=== PATIENT | female | born 1965 | race Asian ===

== ENCOUNTER 2019-06-17 18:04 | Inpatient (IN) | payer OTHER ==
[~2019-06-17] VITALS: Ht 152.4 cm; Wt 46.7 kg
[2019-06-17 18:40] VITALS: BP 126/74
[2019-06-17] MEDS ORDERED: Isovue-300 100ml vial INJ PRN ×2 (18:45→19:45)
[2019-06-17] MEDS ORDERED: AMLODIPINE BESYL5 MG ORAL (18:55)
[2019-06-17] MEDS ORDERED: MULTIVITAMINS1 EAC8 ORAL (18:55)
[2019-06-17] MEDS ORDERED: LO LOESTRIN FE1 EAC1 PO (18:56)
[2019-06-17 19:00] LABS: APPEARANCE,URINE SLIGHTLY CLOUDY; BILIRUBIN, URINE NEGATIVE (NEGATIVE); GLUCOSE, URINE (UA) NEGATIVE (NEGATIVE); KETONES,URINE NEGATIVE (NEGATIVE); LEUKOCYTE ESTERASE ,URINE 3+ (NEGATIVE); NITRITE,URINE NEGATIVE (NEGATIVE); PH,URINE 8 (4.5-8.0); PROTEIN,URINE 3+ (NEGATIVE); UROBILINOGEN,URINE NORMAL MG/DL (0.0-1.0)
[2019-06-17 19:04] LABS: COLOR,URINE RED
--- NOTE | 2019-06-17 19:12 | Infectious Diseases Prog Note ---
Assessment/Plan Assessment/Plan Full consult dictated; A) 1) fever, s/p myomectomy today 2) hx fibroids and bleeding 3) hx HTN 4) allergies - pcn, sulfa - severe 5) sh-neg, fh-nc, meds noted 6) d/w RN and patient P) 1) empiric clindamycin and gentamicin 2) check CT scan and cultures 3) monitor temperatures and labs 4) d/w Dr. Diop and Dr. Pope 5) d/w Dr. Bolando - DENIA SAMANO 6) thank you Subjective Allergies: Coded Allergies: PENICILLINS (Verified Allergy, Unknown, 06/17/19) Uncoded Allergies: SULFA (Allergy, Unknown, 06/17/19) Objective Vital Signs Last 24 Hour Vital Signs Date Time Temp Pulse Resp B/P (MAP) Pulse Ox O2 Delivery O2 Flow Rate FiO2 06/17/19 18:22 98.2 135 18 100/68 (79) 98 Room Air Height (Feet): 5 Weight (Pounds): 103 Laboratory Tests Test 06/17/19 18:15 06/17/19 18:50 Urine Color Red Urine Appearance Slightly cloudy Urine pH 8 (4.5-8.0) Urine Specific [place] 1.010 (1.005-1.035) Urine Protein 3+ (NEGATIVE) H Urine Glucose (UA) Negative (NEGATIVE) Urine Ketones Negative (NEGATIVE) Urine Blood 5+ (NEGATIVE) H Urine Nitrite Negative (NEGATIVE) Urine Bilirubin Negative (NEGATIVE) Urine Urobilinogen Normal MG/DL (0.0-1.0) Urine Leukocyte Esterase 3+ (NEGATIVE) H Urine RBC Pending Urine WBC Pending Urine Squamous Epithelial Cells Pending Urine Bacteria Pending White Blood Count Pending Red Blood Count Pending Hemoglobin Pending Hematocrit Pending Mean Corpuscular Volume Pending Mean Corpuscular Hemoglobin Pending Mean Corpuscular Hemoglobin Concent Pending Red Cell Distribution Width Pending Platelet Count Pending Mean Platelet Volume Pending Neutrophils (%) (Auto) Pending Lymphocytes (%) (Auto) Pending Monocytes (%) (Auto) Pending Eosinophils (%) (Auto) Pending Basophils (%) (Auto) Pending Prothrombin Time Pending Prothromb Time International Ratio Pending Activated Partial Thromboplast Time Pending Sodium Level Pending Potassium Level Pending Chloride Level Pending Carbon Dioxide Level Pending Blood Urea Nitrogen Pending Creatinine Pending Estimat Glomerular Filtration Rate Pending Glucose Level Pending Lactic Acid Level Pending Calcium Level Pending Total Bilirubin Pending Aspartate Amino Transf (AST/SGOT) Pending Alanine Aminotransferase (ALT/SGPT) Pending Alkaline Phosphatase Pending Troponin I Pending Total Protein Pending Albumin Pending Globulin Pending Current Medications Medications (Trade) Dose Ordered Sig/Zully Route PRN Reason Start Time Stop Time Status Last Admin Dose Admin Iopamidol (Isovue-300 100ml) 100 ml NOW PRN INJ Radiology Procedure 06/17/19 18:45 Wilfrido Hollis MD Jun 17, 2019 19:12
[2019-06-17] MEDS ORDERED: Gentamicin Rx monitoring MISC PRN (19:15)
[2019-06-17 19:36] LABS: ALANINE AMINOTRANSFERASE 21 U/L (12-78); ALBUMIN 2.6 G/DL (3.4-5.0); ALBUMIN/GLOBULIN RATIO 0.6 (1.0-2.7); ALKALINE PHOSPHATASE 78 U/L (46-116); ANION GAP 12 mmol/L (5-15); ASPARTATE AMINO TRANSFERASE 35 U/L (15-37); BILIRUBIN,TOTAL 0.4 MG/DL (0.2-1.0); BLOOD UREA NITROGEN 6 mg/dL (7-18); CALCIUM 8.2 MG/DL (8.5-10.1); CARBON DIOXIDE 21 MMOL/L (21-32); CHLORIDE 103 MMOL/L (98-107); CREATININE 1.1 MG/DL (0.55-1.30); POTASSIUM 2.8 MMOL/L (3.5-5.1); SODIUM 136 MMOL/L (136-145)
--- NOTE | 2019-06-17 19:37 | Emergency Room Report ---
History of Present Illness General Chief Complaint: Fever Source: Patient Present Illness HPI 53-year-old female presenting with fever. She had a necrotic fibroid removed by hysteroscopy this morning with Dr. Mcconnell. While in the recovery unit she developed fever and fast heart rate. She was brought straight into the ER here. She says that she does feel some palpitations. No chest pain. Has generalized abdominal pain. No nausea no vomiting Allergies: Coded Allergies: PENICILLINS (Verified Allergy, Unknown, 06/17/19) Uncoded Allergies: SULFA (Allergy, Unknown, 06/17/19) Patient History Past Medical History: see triage record Past Surgical History: none Pertinent Family History: none Last Menstrual Period: 06/04/2019 Reviewed Nursing Documentation: PMH: Agreed; PSxH: Agreed Nursing Documentation-PMH Past Medical History: No History, Except For Hx Hypertension: Yes - Uterine Fibroid, right lumpectomy, breast augmentation Review of Systems All Other Systems: negative except mentioned in HPI Physical Exam Vital Signs Date Time Temp Pulse Resp B/P (MAP) Pulse Ox O2 Delivery O2 Flow Rate FiO2 06/17/19 18:22 98.2 135 18 100/68 (79) 98 Room Air Sp02 EP Interpretation: reviewed, normal General Appearance: alert, GCS 15, non-toxic, mild distress Head: normocephalic, atraumatic Eyes: bilateral eye normal inspection, bilateral eye PERRL, bilateral eye EOMI ENT: normal ENT inspection, normal pharynx, normal voice, moist mucus membranes Neck: normal inspection, full range of motion, supple Respiratory: normal inspection, lungs clear, normal breath sounds, no respiratory distress, no retraction, no wheezing, speaking full sentences, chest symmetrical Cardiovascular #1: tachycardia Cardiovascular #2: 2+ radial (R), 2+ radial (L) Gastrointestinal: soft, non-distended, no guarding, other - Generalized abdominal tenderness nothing focal Musculoskeletal: normal inspection, back normal, normal range of motion, non- tender Neurologic: normal inspection, alert, oriented x3, responsive, motor strength/ tone normal, sensory intact, normal gait, speech normal Psychiatric: normal inspection, judgement/insight normal, memory normal Procedures Critical Care Time Critical Care Time 40 minutes of CC time Critical care time necessary in order to assess and manage the high probability of life threatening deterioration to cardiovasc system, required frequent reassessment. Excludes all billable procedures. Medical Decision Making Diagnostic Impression: Primary Impression: Sepsis Additional Impressions: Hypokalemia Status post hysteroscopic myomectomy ER Course 53-year-old female with abdominal pain and fever DDX: Intra-abdominal complication is post necrotic fibroid removal, abscess, infection, UTI, pyelonephritis, appendicitis, diverticulitis Plan: Obtain labs, ua, EKG, CXR T. Abdo pelvis ER course: Patient has been monitored during ED stay ivf was given Infectious diseases doctor came to see her - rec'ed gentamicin and clindamycin informed Dr Mcconnell Disposition: Patient is to be admitted to [facility]/W hospitalist DR Snow Please note that this Emergency Department Report was dictated using [employer] dispatch manager technology software, occasionally this can lead to erroneous entry secondary to interpretation by the dictation equipment. EKG Diagnostic Results EP Interpretation: Yes Rate: 120 Rhythm: NSR ST Segments: No acute changes ASA given to patient: No Rhythm Strip EP Interpretation: Yes Rate: 120 Rhythm: NSR, no PVCs, no ectopy Chest X-ray CXR: Ordered: Yes 1 view Indication: PAIN EP interpretation: Yes Interpretation: POSS B/L INFILTRATE Impression: hazy opacities b/l --- ?pna Electronically signed by Kathi Larson MD Laboratory Tests Test 06/17/19 18:15 06/17/19 18:50 06/17/19 19:25 Urine Color Red Urine Appearance Slightly cloudy Urine pH 8 (4.5-8.0) Urine Specific [place] 1.010 (1.005-1.035) Urine Protein 3+ (NEGATIVE) H Urine Glucose (UA) Negative (NEGATIVE) Urine Ketones Negative (NEGATIVE) Urine Blood 5+ (NEGATIVE) H Urine Nitrite Negative (NEGATIVE) Urine Bilirubin Negative (NEGATIVE) Urine Urobilinogen Normal MG/DL (0.0-1.0) Urine Leukocyte Esterase 3+ (NEGATIVE) H Urine RBC Tntc /HPF (0 - 2) H Urine WBC 10-15 /HPF (0 - 2) H Urine Squamous Epithelial Cells Occasional /LPF Urine Bacteria Few /HPF (NONE) Sodium Level 136 MMOL/L (136-145) Potassium Level 2.8 MMOL/L (3.5-5.1) L Chloride Level 103 MMOL/L (98-107) Carbon Dioxide Level 21 MMOL/L (21-32) Anion Gap 12 mmol/L (5-15) Blood Urea Nitrogen 6 mg/dL (7-18) L Creatinine 1.1 MG/DL (0.55-1.30) Estimate Glomerular Filtration Rate 52.4 mL/min (>60) Glucose Level 138 MG/DL (74-106) H Lactic Acid Level 4.10 mmol/L (0.4-2.0) H Calcium Level 8.2 MG/DL (8.5-10.1) L Total Bilirubin 0.4 MG/DL (0.2-1.0) Aspartate Amino Transferase (AST) 35 U/L (15-37) Alanine Aminotransferase (ALT) 21 U/L (12-78) Alkaline Phosphatase 78 U/L (46-116) Troponin I 0.004 ng/mL (0.000-0.056) Total Protein 6.8 G/DL (6.4-8.2) Albumin 2.6 G/DL (3.4-5.0) L Globulin 4.2 g/dL Albumin/Globulin Ratio 0.6 (1.0-2.7) L White Blood Count 34.9 K/UL (4.8-10.8) *H Red Blood Count 2.99 M/UL (4.20-5.40) L Hemoglobin 9.8 G/DL (12.0-16.0) L Hematocrit 26.9 % (37.0-47.0) L Mean Corpuscular Volume 90 FL (80-99) Mean Corpuscular Hemoglobin 32.7 PG (27.0-31.0) H Mean Corpuscular Hemoglobin Concent 36.2 G/DL (32.0-36.0) H Red Cell Distribution Width 10.7 % (11.6-14.8) L Platelet Count 275 K/UL (150-450) Mean Platelet Volume 4.7 FL (6.5-10.1) L Neutrophils (%) (Auto) % (45.0-75.0) Lymphocytes (%) (Auto) % (20.0-45.0) Monocytes (%) (Auto) % (1.0-10.0) Eosinophils (%) (Auto) % (0.0-3.0) Basophils (%) (Auto) % (0.0-2.0) Neutrophils % (Manual) Pending Lymphocytes % (Manual) Pending Platelet Estimate Pending Platelet Morphology Pending Prothrombin Time 12.3 SEC (9.30-11.50) H Prothrombin Time INR 1.2 (0.9-1.1) H PTT 29 SEC (23-33) CT/MRI/US Diagnostic Results CT/MRI/US Diagnostic Results : Imaging Test Ordered: CT CHEST ABD PELVIS WITH IV CONTRAST Impression Signs of recent fibroid embolization, trace free fluid in pelvis, no abscess, liver cysts, no SBO. Mild basilar atelectasis Last Vital Signs Date Time Temp Pulse Resp B/P (MAP) Pulse Ox O2 Delivery O2 Flow Rate FiO2 06/17/19 18:40 128 18 Room Air 06/17/19 18:40 98.2 126/74 98 Disposition: ADMITTED INPATIENT Condition: Critical Referrals: Kyle Mcconnell MD (PCP) Kathi Larson M.D. Jun 17, 2019 19:37
[2019-06-17 20:04] LABS: HEMATOCRIT 26.9 % (37.0-47.0); HEMOGLOBIN 9.8 G/DL (12.0-16.0); INR 1.2 (0.9-1.1); MEAN CORPUSCULAR VOLUME 90 FL (80-99); PLATELET COUNT 275 K/UL (150-450); RED BLOOD COUNT 2.99 M/UL (4.20-5.40); RED CELL DISTRIBUTION WIDTH 10.7 % (11.6-14.8)
[2019-06-17 20:05] LABS: WHITE BLOOD COUNT 34.9 K/UL (4.8-10.8)
[2019-06-17] MEDS ORDERED: Clindamycin 900mg 50 ML IVPB ONE (20:15)
[2019-06-17] MEDS ORDERED: GENTAMICIN IVPB ONE (21:00)
[2019-06-17] MEDS ORDERED: NS IVPB ONE (21:00)
[2019-06-17 21:15] VITALS: BP 105/76
[2019-06-17 22:15] VITALS: BP 101/65
[2019-06-17] MEDS ORDERED: POTASSIUM CHLORIDE IV ONE (23:25)
[2019-06-17] MEDS ORDERED: [UNRECOGNIZED DRUG - OTHER] IV ONE (23:25)
[2019-06-18] VITALS: BP 97/61
--- NOTE | 2019-06-18 02:30 | Consultation ---
DATE OF CONSULTATION: 06/17/2019 INFECTIOUS DISEASES CONSULTATION ATTENDING PHYSICIAN: Kenton Diop M.D. REFERRING PHYSICIANS: Kenton Diop M.D., and Kyle Pope M.D. PRIMARY CARE PHYSICIAN: Kyle Pope M.D. HISTORY OF PRESENT ILLNESS: This is a very pleasant 53-year-old female, who presents to [facility] with fever. Outside, she had a temperature of over 103 degrees. She is tachycardic in the ER with a temperature of 98.2 degrees. The patient earlier today had a myomectomy because she has had a history of fibroids and vaginal bleed. Infectious Disease consultation was requested because of the fevers postoperatively. The patient has a severe penicillin allergy and I think I believe sulfa allergy, she states she gets swelling and could be anaphylactic reaction. The patient is to undergo CT scan here in the emergency room and will be cultured in addition to labs. Of note, urinalysis had 10 to 15 white blood cells and 3+ leukocyte esterase, but also had too many to count RBCs, unclear if she has urinary tract infection also. However, the patient did have a procedure today. The patient was placed on clindamycin and gentamicin because of severe penicillin allergy pending workup. Case was discussed with Dr. Diop and Dr. Pope and also Dr. Larson in the emergency room and also the RN and the patient. Please see HPI. REVIEW OF SYSTEMS: GENERAL: The patient as discussed did have fevers a little over 103 degrees in outpatient setting. She did not mention any chills. She has some lower abdominal discomfort. HEAD AND NECK: No headache or neck stiffness. CARDIAC: No chest pain. GASTROINTESTINAL: No nausea or vomiting. She did have abdominal discomfort in lower abdomen. PULMONARY: No congestion or shortness of breath. SKIN: No rash. EXTREMITIES: No extremity pain. GENITOURINARY: No mention of dysuria. NEUROLOGIC: No seizures. Denies any CVA tenderness. PAST MEDICAL HISTORY: She has the past medical history of following: She has a past medical history of hypertension. In addition, she has a history of fibroids with bleed and history of myomectomy done today. No history of diabetes, heart disease, or cancer. ALLERGIES: Include penicillin and sulfa where she gets a severe reaction, almost anaphylactic with swelling. As described, she stated she has swelling and it should be considered possible anaphylactic reaction. Again, allergies to penicillin and sulfa. SOCIAL HISTORY: Negative for smoking, alcohol, or drug abuse. FAMILY HISTORY: Positive for coronary artery disease in her father at age 70. MEDICATIONS: I have placed the patient on clindamycin and gentamicin. She gets outpatient amlodipine. PHYSICAL EXAMINATION: VITAL SIGNS: Temperature 98.2 degrees, pulse rate 135, respiratory rate 18, blood pressure 100/68, and saturation 98% on room air. Her T-max in the outpatient setting was 103 degrees plus per the patient. GENERAL: Alert and responsive, in no acute distress. Oriented x3. HEAD AND NECK: Oral exam, no thrush. Eye exam, no icterus. Neck is supple. No JVD. Normocephalic. HEART: Regular. No obvious gallop or murmur. Tachycardic. ABDOMEN: Soft. Positive bowel sounds. Some discomfort in lower abdomen. No rebound. LUNGS: Clear bilaterally. No rhonchi or rales. SKIN: No rash. MUSCULOSKELETAL: No effusion. Legs are without cellulitis. PERIPHERAL VASCULAR: No cyanosis or gangrene. : No Strickland. No CVA tenderness. LINES: Line sites without phlebitis. NEUROLOGIC: Intact. Nonfocal. Alert and oriented x3. LABORATORY AND IMAGING DATA: UA had 3+ leukocyte esterase, too many to count RBCs, 10 to 15 white blood cells, and few bacteria. Creatinine and CBC are pending. I discussed with Dr. Pope. Outpatient white cell count was normal. Cultures have been ordered. Pending CT scan abdomen and pelvis. Chest x-ray is ordered and pending. Urine and blood cultures have been ordered. Her chemistry labs pending. UA, too many to count RBCs, 10 to 15 white blood cells, and 3+ leukocyte esterase. ASSESSMENT AND PLAN: 1. The patient is status post myomectomy for what sounds like uterine fibroids and bleeding. The patient has postoperative fevers. Etiology unclear at this time. Of note, having fever post myomectomy is not uncommon without any necessary infection. At this time, because of her severe penicillin allergy, I am going to place the patient on clindamycin and gentamicin for polymicrobial coverage including anaerobic coverage and also coverage for UTI. The patient does have 10 to 15 white blood cells on urinalysis. However, she did have procedure today and thus unclear of the significance of this. Continue clindamycin and gentamicin for fever and possible UTI. Check CT scan of the abdomen and pelvis, which has been ordered and will be done today in the ER. Follow up on cultures, labs, and chest x-ray. Continue with clindamycin and gentamicin pending workup. Case was discussed with Dr. Diop, Dr. Pope, and Dr. Larson in the emergency room. Await laboratory data also. 2. Hypertension. Continue amlodipine. 3. IV fluids. 4. Pain management per Dr. Pope and Dr. Diop as needed. 5. History of fibroids and what sounds like uterine fibroids and vaginal bleed. 6. History of myomectomy that was done today. I think I believe she has had previous BRICK [facility]TER procedures also in the past. 7. Allergies to penicillin and sulfa. 8. Family history is noncontributory. 9. MAR was noted. 10. Case was discussed with RN. 11. Social history is negative. 12. The patient has severe allergy to penicillin and sulfa. 13. Continue treatment per Dr. Diop and Dr. Pope. Thank you. I will follow. Wilfrido Hollis M.D. DR: Daniel JOB#: [id number] CC:
[2019-06-18 04:00] VITALS: BP 98/64
[2019-06-18 05:18] LABS: HEMATOCRIT 27.1 % (37.0-47.0); HEMOGLOBIN 8.9 G/DL (12.0-16.0); MEAN CORPUSCULAR VOLUME 97 FL (80-99); PLATELET COUNT 310 K/UL (150-450); RED BLOOD COUNT 2.79 M/UL (4.20-5.40); RED CELL DISTRIBUTION WIDTH 11.5 % (11.6-14.8)
[2019-06-18] MEDS: Clindamycin 900mg 50 ML IV SCH ×3 (05:32→21:28)
[2019-06-18 05:46] LABS: ALANINE AMINOTRANSFERASE 27 U/L (12-78); ALBUMIN 2.6 G/DL (3.4-5.0); ALBUMIN/GLOBULIN RATIO 0.6 (1.0-2.7); ALKALINE PHOSPHATASE 78 U/L (46-116); ANION GAP 12 mmol/L (5-15); ASPARTATE AMINO TRANSFERASE 57 U/L (15-37); BILIRUBIN,TOTAL 0.6 MG/DL (0.2-1.0); BLOOD UREA NITROGEN 6 mg/dL (7-18); CALCIUM 8.2 MG/DL (8.5-10.1); CARBON DIOXIDE 22 MMOL/L (21-32); CHLORIDE 101 MMOL/L (98-107); CREATININE 0.8 MG/DL (0.55-1.30); POTASSIUM 4.2 MMOL/L (3.5-5.1); SODIUM 135 MMOL/L (136-145)
[2019-06-18 08:00] VITALS: BP 95/66
[2019-06-18 08:58] LABS: HEMATOCRIT 25.9 % (37.0-47.0); HEMOGLOBIN 8.6 G/DL (12.0-16.0); MEAN CORPUSCULAR VOLUME 98 FL (80-99); PLATELET COUNT 271 K/UL (150-450); RED BLOOD COUNT 2.64 M/UL (4.20-5.40)
[2019-06-18 09:02] LABS: WHITE BLOOD COUNT 47.3 K/UL (4.8-10.8)
[2019-06-18] MEDS ORDERED: D5W IVPB SCH (10:00)
[2019-06-18] MEDS ORDERED: AZTREONAM IVPB SCH (10:00)
--- NOTE | 2019-06-18 10:08 | General Surgery Progress Note ---
General Surgery-Progress Note Subjective Day of Surgery: june 17 Reason for Consult fever Procedure Performed hysteroscopy, myomectomy Symptoms: improved, tolerating diet, voiding well, passing flatus, BM Objective Last 24 Hour Vital Signs Date Time Temp Pulse Resp B/P (MAP) Pulse Ox O2 Delivery O2 Flow Rate FiO2 06/18/19 08:00 97.2 94 20 95/66 (76) 98 06/18/19 04:00 Room Air 06/18/19 04:00 97.2 91 20 98/64 (75) 95 06/18/19 03:37 91 06/18/19 01:14 98 06/18/19 00:00 98.4 102 18 97/61 (73) 94 06/18/19 00:00 Room Air 06/17/19 22:55 Room Air 06/17/19 22:15 99.1 111 18 101/65 (77) 98 06/17/19 22:00 98.2 105 18 105/76 98 Room Air 06/17/19 21:15 98.2 113 18 105/76 98 Room Air 06/17/19 18:40 128 18 Room Air 06/17/19 18:40 98.2 128 18 126/74 98 Room Air 06/17/19 18:22 98.2 135 18 100/68 (79) 98 Room Air I&O Intake and Output 06/17/19 06/18/19 19:00 07:00 Intake Total 0 ml 1000 ml Balance 0 ml 1000 ml Intake Oral 0 ml 300 ml IV Total 700 ml # Voids 1 5 Dressing: dry Wound: clean Drains: none Cardiovascular: RSR Respiratory: clear Abdomen: soft, flat, scaphoid, non-tender, present bowel sounds Extremities: no edema, no tenderness, no cyanosis Laboratory Tests Test 06/17/19 18:15 06/17/19 18:50 06/17/19 19:25 06/17/19 20:45 Urine Color Red Urine Appearance Slightly cloudy Urine pH 8 (4.5-8.0) Urine Specific [place] 1.010 (1.005-1.035) Urine Protein 3+ (NEGATIVE) H Urine Glucose (UA) Negative (NEGATIVE) Urine Ketones Negative (NEGATIVE) Urine Blood 5+ (NEGATIVE) H Urine Nitrite Negative (NEGATIVE) Urine Bilirubin Negative (NEGATIVE) Urine Urobilinogen Normal MG/DL (0.0-1.0) Urine Leukocyte Esterase 3+ (NEGATIVE) H Urine RBC Tntc /HPF (0 - 2) H Urine WBC 10-15 /HPF (0 - 2) H Urine Squamous Epithelial Cells Occasional /LPF Urine Bacteria Few /HPF (NONE) Sodium Level 136 MMOL/L (136-145) Potassium Level 2.8 MMOL/L (3.5-5.1) L Chloride Level 103 MMOL/L (98-107) Carbon Dioxide Level 21 MMOL/L (21-32) Anion Gap 12 mmol/L (5-15) Blood Urea Nitrogen 6 mg/dL (7-18) L Creatinine 1.1 MG/DL (0.55-1.30) Estimat Glomerular Filtration Rate 52.4 mL/min (>60) Glucose Level 138 MG/DL (74-106) H Lactic Acid Level 4.10 mmol/L (0.4-2.0) H 2.60 mmol/L (0.66-2.22) H Calcium Level 8.2 MG/DL (8.5-10.1) L Total Bilirubin 0.4 MG/DL (0.2-1.0) Aspartate Amino Transf (AST/SGOT) 35 U/L (15-37) Alanine Aminotransferase (ALT/SGPT) 21 U/L (12-78) Alkaline Phosphatase 78 U/L (46-116) Troponin I 0.004 ng/mL (0.000-0.056) Total Protein 6.8 G/DL (6.4-8.2) Albumin 2.6 G/DL (3.4-5.0) L Globulin 4.2 g/dL Albumin/Globulin Ratio 0.6 (1.0-2.7) L White Blood Count 34.9 K/UL (4.8-10.8) *H Red Blood Count 2.99 M/UL (4.20-5.40) L Hemoglobin 9.8 G/DL (12.0-16.0) L Hematocrit 26.9 % (37.0-47.0) L Mean Corpuscular Volume 90 FL (80-99) Mean Corpuscular Hemoglobin 32.7 PG (27.0-31.0) H Mean Corpuscular Hemoglobin Concent 36.2 G/DL (32.0-36.0) H Red Cell Distribution Width 10.7 % (11.6-14.8) L Platelet Count 275 K/UL (150-450) Mean Platelet Volume 4.7 FL (6.5-10.1) L Neutrophils (%) (Auto) % (45.0-75.0) Lymphocytes (%) (Auto) % (20.0-45.0) Monocytes (%) (Auto) % (1.0-10.0) Eosinophils (%) (Auto) % (0.0-3.0) Basophils (%) (Auto) % (0.0-2.0) Differential Total Cells Counted 100 Neutrophils % (Manual) 68 % (45-75) Lymphocytes % (Manual) 1 % (20-45) L Monocytes % (Manual) 3 % (1-10) Eosinophils % (Manual) 1 % (0-3) Basophils % (Manual) 0 % (0-2) Metamyelocytes % 2 % (0-0) H Band Neutrophils 25 % (0-8) H Platelet Estimate Adequate Platelet Morphology Normal Red Blood Cell Morphology Normal Prothrombin Time 12.3 SEC (9.30-11.50) H Prothromb Time International Ratio 1.2 (0.9-1.1) H Activated Partial Thromboplast Time 29 SEC (23-33) Test 06/18/19 03:50 06/18/19 08:45 White Blood Count 52.0 K/UL (4.8-10.8) *H 47.3 K/UL (4.8-10.8) *H Red Blood Count 2.79 M/UL (4.20-5.40) L 2.64 M/UL (4.20-5.40) L Hemoglobin 8.9 G/DL (12.0-16.0) L 8.6 G/DL (12.0-16.0) L Hematocrit 27.1 % (37.0-47.0) L 25.9 % (37.0-47.0) L Mean Corpuscular Volume 97 FL (80-99) 98 FL (80-99) Mean Corpuscular Hemoglobin 31.9 PG (27.0-31.0) H 32.6 PG (27.0-31.0) H Mean Corpuscular Hemoglobin Concent 32.9 G/DL (32.0-36.0) 33.2 G/DL (32.0-36.0) Red Cell Distribution Width 11.5 % (11.6-14.8) L 12.0 % (11.6-14.8) Platelet Count 310 K/UL (150-450) 271 K/UL (150-450) Mean Platelet Volume 5.0 FL (6.5-10.1) L 5.7 FL (6.5-10.1) L Neutrophils (%) (Auto) % (45.0-75.0) % (45.0-75.0) Lymphocytes (%) (Auto) % (20.0-45.0) % (20.0-45.0) Monocytes (%) (Auto) % (1.0-10.0) % (1.0-10.0) Eosinophils (%) (Auto) % (0.0-3.0) % (0.0-3.0) Basophils (%) (Auto) % (0.0-2.0) % (0.0-2.0) Differential Total Cells Counted 100 100 Neutrophils % (Manual) 87 % (45-75) H 87 % (45-75) H Lymphocytes % (Manual) 2 % (20-45) L 4 % (20-45) L Monocytes % (Manual) 1 % (1-10) 2 % (1-10) Eosinophils % (Manual) 0 % (0-3) 0 % (0-3) Basophils % (Manual) 0 % (0-2) 0 % (0-2) Band Neutrophils 10 % (0-8) H 7 % (0-8) Platelet Estimate Adequate Adequate Platelet Morphology Normal Normal Sodium Level 135 MMOL/L (136-145) L Potassium Level 4.2 MMOL/L (3.5-5.1) Chloride Level 101 MMOL/L (98-107) Carbon Dioxide Level 22 MMOL/L (21-32) Anion Gap 12 mmol/L (5-15) Blood Urea Nitrogen 6 mg/dL (7-18) L Creatinine 0.8 MG/DL (0.55-1.30) Estimat Glomerular Filtration Rate > 60 mL/min (>60) Glucose Level 108 MG/DL (74-106) H Calcium Level 8.2 MG/DL (8.5-10.1) L Total Bilirubin 0.6 MG/DL (0.2-1.0) Aspartate Amino Transf (AST/SGOT) 57 U/L (15-37) H Alanine Aminotransferase (ALT/SGPT) 27 U/L (12-78) Alkaline Phosphatase 78 U/L (46-116) Total Protein 6.7 G/DL (6.4-8.2) Albumin 2.6 G/DL (3.4-5.0) L Globulin 4.1 g/dL Albumin/Globulin Ratio 0.6 (1.0-2.7) L Random Gentamicin Level 0.9 ug/mL Imaging CT, abdomen, pelvis, no abscess, CXR pending Assessment Additional Comments cultures pending, Plan Additional Comments continue IV fluids, antibiotics. needs SCDs, hopeful transfer to floor in am. Kyle Pope MD Jun 18, 2019 10:08
--- NOTE | 2019-06-18 10:32 | Diagnostic Imaging Report ---
Indication: 53-year-old female presenting with fever. History of recent hysteroscopic removal of an intrauterine fibroid with subsequent development of fever and tachycardia. Technique: Continuous helical transaxial imaging of the chest, abdomen and pelvis was obtained from the lung bases to the pubic symphysis during intravenous contrast administration. Multiple phases of enhancement obtained. Coronal 2-D reformats were also obtained. Study obtained in a Siemens sensation [address] Automatic Exposure Control was utilized. Total Dose length Product (DLP): [address] Dose Index Volume (CTDIvol): 0.15, 8.11, 81.11, 13.94, 10.88 mGy Comparison: None Findings: CT CHEST: There is mild posterior basilar atelectasis demonstrated. The lungs are clear otherwise. Trace bilateral pleural effusions are present. Bilateral breast implants noted. The study was not obtained as a CTA but the pulmonary artery is well opacified and appears normally enhancing without central or proximal filling defects. The heart is unremarkable. The aorta is unremarkable. CT ABDOMEN/PELVIS: The uterus is enlarged. Within the endometrial canal there are small bubbles of air and heterogeneous material portion of which is hyperdense and compatible with blood. The uterine myometrium enhances intensely. There is a area of relative nonenhancement near the fundus probably representing intramural fibroid measuring about 3 cm. There is a small amount of free fluid within the pelvis. There is a metallic focus in the right adnexa adjacent to the uterus presumably from prior surgery. Small hypodensity in the periphery of the left lobe of the liver measuring 1 cm consistent with a cyst. Another cyst noted in the posterior right lobe near the right kidney measuring 1 cm. Gallbladder is unremarkable. There is no biliary ductal dilatation. Adrenal glands and kidneys are unremarkable. There is no hydronephrosis. Bowel gas pattern appears nonobstructive. Bladder is unremarkable. IMPRESSION: Post hysteroscopic removal of the intrauterine fibroid with some residual blood and air within the endometrial canal. No evidence of extrauterine blood or abscess. Basilar atelectasis and trace bilateral pleural effusions. Other incidental findings as described above The CT scanner at [facility] is accredited by the [employer] and the scans are performed using dose optimization techniques as appropriate to a performed exam including Automatic Exposure control.
[2019-06-18 10:33] LABS: % IRON SATURATION 8 % (15-50); IRON 18 ug/dL (50-175); TOTAL IRON BINDING CAPACITY 215 ug/dL (250-450)
--- NOTE | 2019-06-18 11:57 | Diagnostic Imaging Report ---
Indication: Dyspnea Comparison: 06/17/2019 2 views of the chest obtained. Findings: There is evidence of increasing basilar densities mostly reticular in appearance compared to the study from one day earlier. Heart size remains normal. Bones are unremarkable. IMPRESSION: Increasing basilar infiltrates largely interstitial. Correlate clinically for pneumonia. Findings discussed with Dr. Pope via telephone
[2019-06-18 12:00] VITALS: BP 101/73
--- NOTE | 2019-06-18 12:08 | Diagnostic Imaging Report ---
Indication: Dyspnea Comparison: None A single view chest radiograph was obtained. Findings: There is mild basal atelectasis are demonstrated. There is generalized attenuation of the lung bases due to breast implants. Heart size is normal. Bones are unremarkable. IMPRESSION: Basilar atelectasis
[2019-06-18] MEDS ORDERED: Iron Sucrose 100 MG in NS 55 ML IV SCH (13:00)
--- NOTE | 2019-06-18 13:08 | Infectious Diseases Prog Note ---
Assessment/Plan Assessment/Plan A) 1) gram + blood cultures, ? sepsis, ? bacteremia, leukocytosis, ? pna on chest x-ray, fever, s/p myomectomy 2) hx fibroids and bleeding 3) hx HTN 4) allergies - pcn, sulfa - severe 5) sh-neg, fh-nc, meds noted 6) d/w RN and patient P) 1) clindamycin and gentamicin, vancomycin added for + blood cultures 2) f/u on cultures, CT without abscess 3) monitor temperatures and labs 4) d/w Dr. Diop and Dr. Pope 5) d/w patient 6) will f/u Subjective Constitutional: Denies: fever Respiratory: Denies: shortness of breath Cardiovascular: Denies: chest pain Gastrointestinal/Abdominal: Denies: nausea, vomiting, diarrhea Genitourinary: Reports: dysuria - no garcía Neurologic: Denies: headache Psychiatric: Denies: depression Skin: Denies: rash Hematologic: Denies: bleeding Musculoskeletal: Denies: pain Allergies: Coded Allergies: PENICILLINS (Verified Allergy, Unknown, 06/17/19) Uncoded Allergies: SULFA (Allergy, Unknown, 06/17/19) Objective Vital Signs Last 24 Hour Vital Signs Date Time Temp Pulse Resp B/P (MAP) Pulse Ox O2 Delivery O2 Flow Rate FiO2 06/18/19 12:00 97.8 102 16 101/73 (82) 98 06/18/19 12:00 Room Air 06/18/19 08:00 98 06/18/19 08:00 97.2 94 20 95/66 (76) 98 06/18/19 08:00 Room Air 06/18/19 04:00 Room Air 06/18/19 04:00 97.2 91 20 98/64 (75) 95 06/18/19 03:37 91 06/18/19 01:14 98 06/18/19 00:00 98.4 102 18 97/61 (73) 94 06/18/19 00:00 Room Air 06/17/19 22:55 Room Air 06/17/19 22:15 99.1 111 18 101/65 (77) 98 06/17/19 22:00 98.2 105 18 105/76 98 Room Air 06/17/19 21:15 98.2 113 18 105/76 98 Room Air 06/17/19 18:40 128 18 Room Air 06/17/19 18:40 98.2 128 18 126/74 98 Room Air 06/17/19 18:22 98.2 135 18 100/68 (79) 98 Room Air Height (Feet): 5 Weight (Pounds): 103 General Appearance: no acute distress HEENT: normocephalic, atraumatic, anicteric Respiratory/Chest: lungs clear, normal breath sounds, no respiratory distress, no accessory muscle use Cardiovascular: normal rate, regular rhythm, no gallop/murmur, no JVD Abdomen: normal bowel sounds, soft, non tender, no organomegaly Microbiology Date/Time Source Procedure Growth Status 06/17/19 18:35 Blood Blood Culture - Preliminary Resulted 06/17/19 18:15 Urine,Clean Catch Urine Culture - Preliminary NO GROWTH Resulted Laboratory Tests Test 06/17/19 18:15 06/17/19 18:50 06/17/19 19:25 06/17/19 20:45 Urine Color Red Urine Appearance Slightly cloudy Urine pH 8 (4.5-8.0) Urine Specific [place] 1.010 (1.005-1.035) Urine Protein 3+ (NEGATIVE) H Urine Glucose (UA) Negative (NEGATIVE) Urine Ketones Negative (NEGATIVE) Urine Blood 5+ (NEGATIVE) H Urine Nitrite Negative (NEGATIVE) Urine Bilirubin Negative (NEGATIVE) Urine Urobilinogen Normal MG/DL (0.0-1.0) Urine Leukocyte Esterase 3+ (NEGATIVE) H Urine RBC Tntc /HPF (0 - 2) H Urine WBC 10-15 /HPF (0 - 2) H Urine Squamous Epithelial Cells Occasional /LPF Urine Bacteria Few /HPF (NONE) Sodium Level 136 MMOL/L (136-145) Potassium Level 2.8 MMOL/L (3.5-5.1) L Chloride Level 103 MMOL/L (98-107) Carbon Dioxide Level 21 MMOL/L (21-32) Anion Gap 12 mmol/L (5-15) Blood Urea Nitrogen 6 mg/dL (7-18) L Creatinine 1.1 MG/DL (0.55-1.30) Estimat Glomerular Filtration Rate 52.4 mL/min (>60) Glucose Level 138 MG/DL (74-106) H Lactic Acid Level 4.10 mmol/L (0.4-2.0) H 2.60 mmol/L (0.66-2.22) H Calcium Level 8.2 MG/DL (8.5-10.1) L Total Bilirubin 0.4 MG/DL (0.2-1.0) Aspartate Amino Transf (AST/SGOT) 35 U/L (15-37) Alanine Aminotransferase (ALT/SGPT) 21 U/L (12-78) Alkaline Phosphatase 78 U/L (46-116) Troponin I 0.004 ng/mL (0.000-0.056) Total Protein 6.8 G/DL (6.4-8.2) Albumin 2.6 G/DL (3.4-5.0) L Globulin 4.2 g/dL Albumin/Globulin Ratio 0.6 (1.0-2.7) L White Blood Count 34.9 K/UL (4.8-10.8) *H Red Blood Count 2.99 M/UL (4.20-5.40) L Hemoglobin 9.8 G/DL (12.0-16.0) L Hematocrit 26.9 % (37.0-47.0) L Mean Corpuscular Volume 90 FL (80-99) Mean Corpuscular Hemoglobin 32.7 PG (27.0-31.0) H Mean Corpuscular Hemoglobin Concent 36.2 G/DL (32.0-36.0) H Red Cell Distribution Width 10.7 % (11.6-14.8) L Platelet Count 275 K/UL (150-450) Mean Platelet Volume 4.7 FL (6.5-10.1) L Neutrophils (%) (Auto) % (45.0-75.0) Lymphocytes (%) (Auto) % (20.0-45.0) Monocytes (%) (Auto) % (1.0-10.0) Eosinophils (%) (Auto) % (0.0-3.0) Basophils (%) (Auto) % (0.0-2.0) Differential Total Cells Counted 100 Neutrophils % (Manual) 68 % (45-75) Lymphocytes % (Manual) 1 % (20-45) L Monocytes % (Manual) 3 % (1-10) Eosinophils % (Manual) 1 % (0-3) Basophils % (Manual) 0 % (0-2) Metamyelocytes % 2 % (0-0) H Band Neutrophils 25 % (0-8) H Platelet Estimate Adequate Platelet Morphology Normal Red Blood Cell Morphology Normal Prothrombin Time 12.3 SEC (9.30-11.50) H Prothromb Time International Ratio 1.2 (0.9-1.1) H Activated Partial Thromboplast Time 29 SEC (23-33) Test 06/18/19 03:50 06/18/19 08:45 White Blood Count 52.0 K/UL (4.8-10.8) *H 47.3 K/UL (4.8-10.8) *H Red Blood Count 2.79 M/UL (4.20-5.40) L 2.64 M/UL (4.20-5.40) L Hemoglobin 8.9 G/DL (12.0-16.0) L 8.6 G/DL (12.0-16.0) L Hematocrit 27.1 % (37.0-47.0) L 25.9 % (37.0-47.0) L Mean Corpuscular Volume 97 FL (80-99) 98 FL (80-99) Mean Corpuscular Hemoglobin 31.9 PG (27.0-31.0) H 32.6 PG (27.0-31.0) H Mean Corpuscular Hemoglobin Concent 32.9 G/DL (32.0-36.0) 33.2 G/DL (32.0-36.0) Red Cell Distribution Width 11.5 % (11.6-14.8) L 12.0 % (11.6-14.8) Platelet Count 310 K/UL (150-450) 271 K/UL (150-450) Mean Platelet Volume 5.0 FL (6.5-10.1) L 5.7 FL (6.5-10.1) L Neutrophils (%) (Auto) % (45.0-75.0) % (45.0-75.0) Lymphocytes (%) (Auto) % (20.0-45.0) % (20.0-45.0) Monocytes (%) (Auto) % (1.0-10.0) % (1.0-10.0) Eosinophils (%) (Auto) % (0.0-3.0) % (0.0-3.0) Basophils (%) (Auto) % (0.0-2.0) % (0.0-2.0) Differential Total Cells Counted 100 100 Neutrophils % (Manual) 87 % (45-75) H 87 % (45-75) H Lymphocytes % (Manual) 2 % (20-45) L 4 % (20-45) L Monocytes % (Manual) 1 % (1-10) 2 % (1-10) Eosinophils % (Manual) 0 % (0-3) 0 % (0-3) Basophils % (Manual) 0 % (0-2) 0 % (0-2) Band Neutrophils 10 % (0-8) H 7 % (0-8) Platelet Estimate Adequate Adequate Platelet Morphology Normal Normal Sodium Level 135 MMOL/L (136-145) L Potassium Level 4.2 MMOL/L (3.5-5.1) Chloride Level 101 MMOL/L (98-107) Carbon Dioxide Level 22 MMOL/L (21-32) Anion Gap 12 mmol/L (5-15) Blood Urea Nitrogen 6 mg/dL (7-18) L Creatinine 0.8 MG/DL (0.55-1.30) Estimat Glomerular Filtration Rate > 60 mL/min (>60) Glucose Level 108 MG/DL (74-106) H Calcium Level 8.2 MG/DL (8.5-10.1) L Total Bilirubin 0.6 MG/DL (0.2-1.0) Aspartate Amino Transf (AST/SGOT) 57 U/L (15-37) H Alanine Aminotransferase (ALT/SGPT) 27 U/L (12-78) Alkaline Phosphatase 78 U/L (46-116) Total Protein 6.7 G/DL (6.4-8.2) Albumin 2.6 G/DL (3.4-5.0) L Globulin 4.1 g/dL Albumin/Globulin Ratio 0.6 (1.0-2.7) L Iron Level 18 ug/dL (50-175) L Total Iron Binding Capacity 215 ug/dL (250-450) L Percent Iron Saturation 8 % (15-50) L Unsaturated Iron Binding 197 ug/dL (112-346) Random Gentamicin Level 0.9 ug/mL Current Medications Medications (Trade) Dose Ordered Sig/Zully Route PRN Reason Start Time Stop Time Status Last Admin Dose Admin Acetaminophen (Tylenol) 650 mg Q6H PRN ORAL Mild Pain/Temp > 100.5 06/18/19 00:30 07/18/19 00:29 06/18/19 03:36 Clindamycin HCl/ Dextrose 50 ml @ 100 mls/hr Q8HR IV 06/18/19 06:00 06/25/19 05:59 06/18/19 05:32 Dextrose/ Electrolytes 1,000 ml @ 150 mls/hr Q6H40M IV 06/18/19 11:30 07/18/19 11:29 06/18/19 11:52 Docusate Sodium (Colace) 100 mg BID ORAL 06/18/19 18:00 07/18/19 17:59 Gentamicin Protocol (Gentamicin pharmacy to dose) 1 ea DAILY PRN MISC Per rx protocol 06/17/19 19:15 07/17/19 19:14 Gentamicin Sulfate 220 mg/ Sodium Chloride 115.5 ml @ 231 mls/hr Q24H IVPB 06/18/19 21:00 06/25/19 20:59 Iopamidol (Isovue-300 100ml) 100 ml NOW PRN INJ Radiology Procedure 06/17/19 18:45 06/19/19 18:44 Iopamidol (Isovue-300 100ml) 100 ml NOW PRN INJ Radiology Procedure 06/17/19 19:45 06/19/19 19:44 Iron Sucrose 100 mg/Sodium Chloride 60 ml @ 240 mls/hr BEDTIME IV 06/19/19 21:00 06/22/19 21:14 Iron Sucrose 100 mg/Sodium Chloride 60 ml @ 240 mls/hr ONCE IV 06/18/19 13:00 06/18/19 14:00 Vancomycin HCl (Vanco rx to dose) 1 ea DAILY PRN MISC Per rx protocol 06/18/19 11:15 07/18/19 11:14 Vancomycin HCl 500 mg/Dextrose 110 ml @ 110 mls/hr Q12HR@0200,1400 IVPB 06/18/19 14:00 06/23/19 13:59 Wilfrido Hollis MD Jun 18, 2019 13:08
--- NOTE | 2019-06-18 13:43 | History & Physical ---
History and Physical History & Physicial dict sepsis bacteremia s/p myomectomy HTN, now low BP Kenton Diop MD Jun 18, 2019 13:43
[2019-06-18] MEDS: Vancomycin 500mg/D5W 110ml IVPB SCH ×2 (14:05)
[2019-06-18 16:00] VITALS: BP 108/76
[2019-06-18] MEDS: Docusate 100mg tablet ORAL SCH (17:12)
--- NOTE | 2019-06-18 18:00 | History and Physical Report ---
DATE OF ADMISSION: 06/17/2019 HISTORY OF PRESENT ILLNESS: The patient is a 53-year-old woman, who had an outpatient vaginal myomectomy done on the day of admission. Following surgery, she had a high fever up to 103 and an elevated heart rate and was referred to the emergency department. She was evaluated and had signs of tachycardia and lactic acidosis and admission was arranged for possible sepsis. The patient states that she is feeling better this morning. She had antibiotics and fluids last night. She has no shortness of breath or cough. No chest pain. She has no nausea, vomiting, or diarrhea. She does have some pelvic pain and discharge. PAST MEDICAL HISTORY: She has a history of hypertension and uterine fibroids. She had a prior uterine artery embolization. MEDICATIONS: Amlodipine. ALLERGIES: Penicillin and sulfa, possibly causing anaphylaxis. SOCIAL HISTORY: Does not drink or smoke. FAMILY HISTORY: Noncontributory. PHYSICAL EXAMINATION: GENERAL: The patient is alert and responsive. She is well developed and well nourished. VITAL SIGNS: Show temperature was elevated earlier to 103, that has come down now. Heart rate was as high as 135, but has improved this morning to 102. The blood pressure has been as low as 88/60, but presently 101/73. SKIN: Warm and dry. HEENT: Head is normocephalic. NECK: No jugular venous distention. Thyroid is not enlarged. CHEST: Clear. CARDIAC: Rhythm is regular. Tachycardia. ABDOMEN: Soft. There is mild tenderness in the pelvis. The liver and spleen are not enlarged. There is no rebound or ascites and no guarding. EXTREMITIES: Show no clubbing, cyanosis, or edema. LABORATORY STUDIES: This morning, the white count was up to 52,000 from 35,000 yesterday. She has moderate anemia with hemoglobin 8.6. The platelets are normal. Chemistry showed elevated lactic acid, which improved. There is mild increase of AST. Albumin is low at 2.6. Urine shows many red cells and a few white cells. Coagulation shows INR 1.2. Chest x-ray shows bibasilar infiltrates. A CT of the chest, abdomen and pelvis showed some blood in the endometrial cavity, basilar atelectasis, and trace effusions. Blood culture this morning came back positive for gram positive cocci in chains. IMPRESSION: 1. Sepsis with bacteremia. 2. Status post vaginal myomectomy. 3. Hypertension with hypotension at this time due to sepsis. PLAN: The patient has been given intravenous fluid resuscitation and appropriate antibiotics have been ordered by the Infectious Disease specialist. There is marked leukocytosis which persists. She may require hysterectomy if her condition does not stabilize. Thank you for asking me to see her in consultation. I will follow closely with you. Kenton Diop M.D. DR: RAIN JOB#: [id number] CC: Wilfrido Hollis M.D.; Fax#: [phone] KENTON DIOP M.D. ; FAX#: [phone] CARMEN JANE M.D.; FAX#: [phone] [facility]ITALWill[facility]
[2019-06-18 20:00] VITALS: BP 110/72
[2019-06-18] MEDS ORDERED: DiphenhydrAMINE 50mg/ml Inj IVP SCH (21:00)
[2019-06-18] MEDS: NS IVPB SCH (21:27)
[2019-06-18] MEDS: GENTAMICIN IVPB SCH (21:27)
[2019-06-19] VITALS: BP 117/76
[2019-06-19] MEDS: Vancomycin 500mg/D5W 110ml IVPB SCH ×4 (02:54→14:40)
[2019-06-19 04:00] VITALS: BP 131/88
[2019-06-19 05:01] LABS: HEMATOCRIT 30.7 % (37.0-47.0); MEAN CORPUSCULAR VOLUME 98 FL (80-99); PLATELET COUNT 347 K/UL (150-450); RED BLOOD COUNT 3.12 M/UL (4.20-5.40); RED CELL DISTRIBUTION WIDTH 11.9 % (11.6-14.8)
[2019-06-19 05:39] LABS: ANION GAP 10 mmol/L (5-15); BLOOD UREA NITROGEN 5 mg/dL (7-18); CARBON DIOXIDE 23 MMOL/L (21-32); CHLORIDE 107 MMOL/L (98-107); CREATININE 0.8 MG/DL (0.55-1.30); POTASSIUM 3.5 MMOL/L (3.5-5.1); SODIUM 140 MMOL/L (136-145)
[2019-06-19 05:48] LABS: WHITE BLOOD COUNT 39.8 K/UL (4.8-10.8)
[2019-06-19] MEDS: Clindamycin 900mg 50 ML IV SCH ×3 (06:30→21:33)
[2019-06-19 08:00] VITALS: BP 119/77
[2019-06-19] MEDS ORDERED: NS IVPB SCH (09:00)
[2019-06-19] MEDS ORDERED: GENTAMICIN IVPB SCH (09:00)
[2019-06-19] MEDS: Docusate 100mg tablet ORAL SCH ×2 (09:01→17:32)
[2019-06-19 12:00] VITALS: BP 113/74
[2019-06-19 14:51] LABS: HEMATOCRIT 29.8 % (37.0-47.0); HEMOGLOBIN 9.7 G/DL (12.0-16.0); MEAN CORPUSCULAR VOLUME 98 FL (80-99); PLATELET COUNT 347 K/UL (150-450); RED BLOOD COUNT 3.05 M/UL (4.20-5.40); RED CELL DISTRIBUTION WIDTH 11.7 % (11.6-14.8)
--- NOTE | 2019-06-19 14:55 | Consultation ---
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 CT noted, labs noted, exam with abd pain. surgery called to evaluate and ensure no other etiology of above. patient seen, chart reviewed, patient examined. Allergies: Coded Allergies: PENICILLINS (Verified Allergy, Severe, possible anaphylaxis, 06/19/19) possible anaphylaxis per H&P from Dr Diop, 06/18/19 SULFAMETHOXAZOLE (Verified Allergy, Intermediate, Hives, 06/19/19) possible anaphylaxis per H&P from Dr Diop, 06/18/19 Medication History Scheduled Amlodipine Besylate* (Amlodipine Besylate*), 5 MG ORAL DAILY, (Reported) Multivitamin With Minerals (Multivitamins With Minerals*), 1 TAB ORAL DAILY, ( Reported) Noreth A-Et Estra/Fe Fumarate (Lo Loestrin Fe 1-10 Tablet), 1 EACH PO DAILY, ( Reported) Patient History History Provided By: Patient, Medical Record, PMD Healthcare decision maker SELF Resuscitation status Full Code Advanced Directive on File No Past Medical/Surgical History Past Medical/Surgical History: (1) Hypokalemia (2) Sepsis Review of Systems Review of Symptoms General ROS: no weight loss or fever Psychological ROS: no depression or mood changes, no memory loss Ophthalmic ROS: no visual changes or eye irritation ENT ROS: no nasal congestion, hearing loss, dizziness Allergy and Immunology ROS: no allergic symptoms or urticaria Hematological and Lymphatic ROS: no swollen glands, unusual bleeding or bruising Endocrine ROS: no polyuria, polydipsia, weight changes, temperature intolerance Respiratory ROS: no cough, shortness of breath, or wheezing Cardiovascular ROS: no chest pain or dyspnea on exertion Gastrointestinal ROS: abdominal pain, no bright red blood in stool. Musculoskeletal ROS: no myalgias or arthralgias Neurological ROS: no TIA or stroke symptoms Dermatological ROS: no new or changing skin lesions, rashes or pruritis Physical Exam Physical Exam General appearance: alert, cooperative, no distress, appears stated age Head: Normocephalic, without obvious abnormality, atraumatic Eyes: conjunctivae/corneas clear. PERRL, EOM's intact. Fundi benign Throat: Lips, mucosa, and tongue normal. Teeth and gums normal Neck: supple, symmetrical, trachea midline, no adenopathy, thyroid: not enlarged, symmetric, no tenderness/mass/nodules, no carotid bruit and no JVD Lungs: clear to auscultation bilaterally Heart: regular rate and rhythm, S1, S2 normal, no murmur, click, rub or gallop Abdomen: soft, tender. Bowel sounds normal. No masses, no organomegaly Extremities: extremities normal, atraumatic, no cyanosis or edema Pulses: 2+ and symmetric Skin: Skin color, texture, turgor normal. No rashes or lesions Neurologic: Grossly normal Last 24 Hour Vital Signs Date Time Temp Pulse Resp B/P (MAP) Pulse Ox O2 Delivery O2 Flow Rate FiO2 06/19/19 12:00 95 06/19/19 12:00 99.5 104 19 113/74 (87) 97 06/19/19 12:00 Room Air 06/19/19 08:00 98.4 108 19 119/77 (91) 97 06/19/19 08:00 Room Air 06/19/19 07:50 108 06/19/19 04:00 98.9 109 18 131/88 (102) 97 06/19/19 04:00 Room Air 06/19/19 03:29 104 06/19/19 00:00 Room Air 06/19/19 00:00 98.4 95 18 117/76 (90) 95 06/18/19 23:32 94 06/18/19 20:00 Room Air 06/18/19 20:00 97.5 108 18 110/72 (85) 96 06/18/19 19:23 114 06/18/19 16:00 Room Air 06/18/19 16:00 97.5 104 18 108/76 (87) 99 06/18/19 15:11 104 Intake and Output 06/18/19 06/19/19 19:00 07:00 Intake Total 2110 ml 1475.5 ml Output Total 1400 ml 3450 ml Balance 710 ml -1974.5 ml Intake Oral 520 ml IV Total 1590 ml 1475.5 ml Output Urine Total 1400 ml 3450 ml # Voids 7 # Bowel Movements 1 Laboratory Tests Test 06/19/19 03:10 06/19/19 14:15 White Blood Count 39.8 K/UL (4.8-10.8) *H Pending Red Blood Count 3.12 M/UL (4.20-5.40) L Pending Hemoglobin 10.0 G/DL (12.0-16.0) L Pending Hematocrit 30.7 % (37.0-47.0) L Pending Mean Corpuscular Volume 98 FL (80-99) Pending Mean Corpuscular Hemoglobin 32.0 PG (27.0-31.0) H Pending Mean Corpuscular Hemoglobin Concent 32.5 G/DL (32.0-36.0) Pending Red Cell Distribution Width 11.9 % (11.6-14.8) Pending Platelet Count 347 K/UL (150-450) Pending Mean Platelet Volume 5.7 FL (6.5-10.1) L Pending Neutrophils (%) (Auto) % (45.0-75.0) Pending Lymphocytes (%) (Auto) % (20.0-45.0) Pending Monocytes (%) (Auto) % (1.0-10.0) Pending Eosinophils (%) (Auto) % (0.0-3.0) Pending Basophils (%) (Auto) % (0.0-2.0) Pending Differential Total Cells Counted 100 Neutrophils % (Manual) 94 % (45-75) H Lymphocytes % (Manual) 3 % (20-45) L Monocytes % (Manual) 3 % (1-10) Eosinophils % (Manual) 0 % (0-3) Basophils % (Manual) 0 % (0-2) Band Neutrophils 0 % (0-8) Platelet Estimate Adequate Platelet Morphology Normal Hypochromasia 1+ Anisocytosis 1+ Sodium Level 140 MMOL/L (136-145) Potassium Level 3.5 MMOL/L (3.5-5.1) Chloride Level 107 MMOL/L (98-107) Carbon Dioxide Level 23 MMOL/L (21-32) Anion Gap 10 mmol/L (5-15) Blood Urea Nitrogen 5 mg/dL (7-18) L Creatinine 0.8 MG/DL (0.55-1.30) Estimat Glomerular Filtration Rate > 60 mL/min (>60) Glucose Level 77 MG/DL (74-106) Calcium Level 9.0 MG/DL (8.5-10.1) Microbiology Date/Time Source Procedure Growth Status 06/18/19 16:00 Sputum Gram Stain - Final Resulted 06/18/19 16:00 Sputum Sputum Culture - Preliminary NORMAL UPPER RESPIRATORY CATHRYN AT 24 ... Resulted Height (Feet): 5 Weight (Pounds): 103 Medications Current Medications Medications (Trade) Dose Ordered Sig/Zully Route PRN Reason Start Time Stop Time Status Last Admin Dose Admin Acetaminophen (Tylenol) 650 mg Q6H PRN ORAL Mild Pain/Temp > 100.5 06/18/19 00:30 07/18/19 00:29 06/18/19 17:17 Clindamycin HCl/ Dextrose 50 ml @ 100 mls/hr Q8HR IV 06/18/19 06:00 06/25/19 05:59 06/19/19 14:40 Dextrose/ Electrolytes 1,000 ml @ 100 mls/hr Q10H IV 06/19/19 10:02 07/19/19 10:01 06/19/19 10:49 Docusate Sodium (Colace) 100 mg BID ORAL 06/18/19 18:00 07/18/19 17:59 06/19/19 09:01 Gentamicin Protocol (Gentamicin pharmacy to dose) 1 ea DAILY PRN MISC Per rx protocol 06/17/19 19:15 07/17/19 19:14 Gentamicin Sulfate 220 mg/ Sodium Chloride 115.5 ml @ 231 mls/hr Q24H IVPB 06/18/19 21:00 06/25/19 20:59 06/18/19 21:27 Iopamidol (Isovue-300 100ml) 100 ml NOW PRN INJ Radiology Procedure 06/17/19 18:45 06/19/19 18:44 Iopamidol (Isovue-300 100ml) 100 ml NOW PRN INJ Radiology Procedure 06/17/19 19:45 06/19/19 19:44 Iron Sucrose 100 mg/Sodium Chloride 60 ml @ 240 mls/hr BEDTIME IV 06/19/19 21:00 06/22/19 21:14 Vancomycin HCl (Vanco rx to dose) 1 ea DAILY PRN MISC Per rx protocol 06/18/19 11:15 07/18/19 11:14 Vancomycin HCl 500 mg/Dextrose 110 ml @ 110 mls/hr Q12HR@0200,1400 IVPB 06/18/19 14:00 06/23/19 13:59 06/19/19 14:40 Assessment/Plan Problem List: (1) Abdominal pain Assessment & Plan: 53F abd pain, fevers, leukocytosis. recent outpatient ob/ patent chemist procedure abd soft, mild distention, tender in midline pelvic no n/v nml bm unlikely appy or gian or bowel issue given exam agree likely related to recent surgery improving with Abx will discuss with team in regards to exploration or surgical intervention thank you will follow with recs ICD Codes: R10.9 - Unspecified abdominal pain SNOMED: 17039578 (2) Sepsis Assessment & Plan: as above cont abx ICD Codes: A41.9 - Sepsis, unspecified organism SNOMED: [id number] Earl Gaspar Jun 19, 2019 14:55
[2019-06-19 14:57] LABS: WHITE BLOOD COUNT 33.8 K/UL (4.8-10.8)
--- NOTE | 2019-06-19 15:13 | General Surgery Progress Note ---
General Surgery-Progress Note Subjective Procedure Performed hysteroscopy, myomectomy Symptoms: improved, tolerating diet, voiding well, passing flatus, BM Objective Last 24 Hour Vital Signs Date Time Temp Pulse Resp B/P (MAP) Pulse Ox O2 Delivery O2 Flow Rate FiO2 06/19/19 12:00 95 06/19/19 12:00 99.5 104 19 113/74 (87) 97 06/19/19 12:00 Room Air 06/19/19 08:00 98.4 108 19 119/77 (91) 97 06/19/19 08:00 Room Air 06/19/19 07:50 108 06/19/19 04:00 98.9 109 18 131/88 (102) 97 06/19/19 04:00 Room Air 06/19/19 03:29 104 06/19/19 00:00 Room Air 06/19/19 00:00 98.4 95 18 117/76 (90) 95 06/18/19 23:32 94 06/18/19 20:00 Room Air 06/18/19 20:00 97.5 108 18 110/72 (85) 96 06/18/19 19:23 114 06/18/19 16:00 Room Air 06/18/19 16:00 97.5 104 18 108/76 (87) 99 06/18/19 15:11 104 I&O Intake and Output 06/18/19 06/19/19 19:00 07:00 Intake Total 2110 ml 1475.5 ml Output Total 1400 ml 3450 ml Balance 710 ml -1974.5 ml Intake Oral 520 ml IV Total 1590 ml 1475.5 ml Output Urine Total 1400 ml 3450 ml # Voids 7 # Bowel Movements 1 Dressing: dry Wound: clean Drains: none Cardiovascular: other - occasional tachycardia Laboratory Tests Test 06/19/19 03:10 06/19/19 14:15 White Blood Count 39.8 K/UL (4.8-10.8) *H 33.8 K/UL (4.8-10.8) *H Red Blood Count 3.12 M/UL (4.20-5.40) L 3.05 M/UL (4.20-5.40) L Hemoglobin 10.0 G/DL (12.0-16.0) L 9.7 G/DL (12.0-16.0) L Hematocrit 30.7 % (37.0-47.0) L 29.8 % (37.0-47.0) L Mean Corpuscular Volume 98 FL (80-99) 98 FL (80-99) Mean Corpuscular Hemoglobin 32.0 PG (27.0-31.0) H 31.7 PG (27.0-31.0) H Mean Corpuscular Hemoglobin Concent 32.5 G/DL (32.0-36.0) 32.5 G/DL (32.0-36.0) Red Cell Distribution Width 11.9 % (11.6-14.8) 11.7 % (11.6-14.8) Platelet Count 347 K/UL (150-450) 347 K/UL (150-450) Mean Platelet Volume 5.7 FL (6.5-10.1) L 5.7 FL (6.5-10.1) L Neutrophils (%) (Auto) % (45.0-75.0) % (45.0-75.0) Lymphocytes (%) (Auto) % (20.0-45.0) % (20.0-45.0) Monocytes (%) (Auto) % (1.0-10.0) % (1.0-10.0) Eosinophils (%) (Auto) % (0.0-3.0) % (0.0-3.0) Basophils (%) (Auto) % (0.0-2.0) % (0.0-2.0) Differential Total Cells Counted 100 Neutrophils % (Manual) 94 % (45-75) H Lymphocytes % (Manual) 3 % (20-45) L Monocytes % (Manual) 3 % (1-10) Eosinophils % (Manual) 0 % (0-3) Basophils % (Manual) 0 % (0-2) Band Neutrophils 0 % (0-8) Platelet Estimate Adequate Platelet Morphology Normal Hypochromasia 1+ Anisocytosis 1+ Sodium Level 140 MMOL/L (136-145) Potassium Level 3.5 MMOL/L (3.5-5.1) Chloride Level 107 MMOL/L (98-107) Carbon Dioxide Level 23 MMOL/L (21-32) Anion Gap 10 mmol/L (5-15) Blood Urea Nitrogen 5 mg/dL (7-18) L Creatinine 0.8 MG/DL (0.55-1.30) Estimat Glomerular Filtration Rate > 60 mL/min (>60) Glucose Level 77 MG/DL (74-106) Calcium Level 9.0 MG/DL (8.5-10.1) Assessment Additional Comments wbc falling, low grade temperature Plan Additional Comments extensive discussion w patient concerning risks, benefits of surgery. patient elects to postpone surgery, and continue w antibiotic therapy Kyle Pope MD Jun 19, 2019 15:13
[2019-06-19 16:00] VITALS: BP 120/40
--- NOTE | 2019-06-19 16:26 | Infectious Diseases Prog Note ---
Assessment/Plan Assessment/Plan A) 1) streptococcus group bacteremia, sepsis, leukocytosis, ? pna on chest x-ray , fever, s/p myomectomy 2) hx fibroids and bleeding 3) hx HTN 4) allergies - pcn, sulfa - severe 5) sh-neg, fh-nc, meds noted, mar noted 6) d/w RN and patient P) 1) clindamycin, gentamicin and vancomycin - clinically improved 2) f/u on cultures, CT without abscess, f/u chest x-ray Sunday 3) monitor temperatures and labs 4) d/w Dr. Diop and Dr. Pope 5) d/w patient 6) surgery f/u - no surgery for now Subjective Constitutional: Reports: fatigue; Denies: fever Respiratory: Denies: shortness of breath Cardiovascular: Denies: chest pain Gastrointestinal/Abdominal: Reports: other - less abdominal pain ; Denies: nausea, vomiting, diarrhea Neurologic: Denies: headache Psychiatric: Denies: depression Skin: Denies: rash Hematologic: Denies: bleeding Musculoskeletal: Reports: pain - less abdominal pain Allergies: Coded Allergies: PENICILLINS (Verified Allergy, Severe, possible anaphylaxis, 06/19/19) possible anaphylaxis per H&P from Dr Diop, 06/18/19 SULFAMETHOXAZOLE (Verified Allergy, Intermediate, Hives, 06/19/19) possible anaphylaxis per H&P from Dr Diop, 06/18/19 Objective Vital Signs Last 24 Hour Vital Signs Date Time Temp Pulse Resp B/P (MAP) Pulse Ox O2 Delivery O2 Flow Rate FiO2 06/19/19 12:00 95 06/19/19 12:00 99.5 104 19 113/74 (87) 97 06/19/19 12:00 Room Air 06/19/19 08:00 98.4 108 19 119/77 (91) 97 06/19/19 08:00 Room Air 06/19/19 07:50 108 06/19/19 04:00 98.9 109 18 131/88 (102) 97 06/19/19 04:00 Room Air 06/19/19 03:29 104 06/19/19 00:00 Room Air 06/19/19 00:00 98.4 95 18 117/76 (90) 95 06/18/19 23:32 94 06/18/19 20:00 Room Air 06/18/19 20:00 97.5 108 18 110/72 (85) 96 06/18/19 19:23 114 Height (Feet): 5 Weight (Pounds): 103 General Appearance: no acute distress HEENT: normocephalic, atraumatic, anicteric, mucous membranes moist Respiratory/Chest: lungs clear, normal breath sounds, no respiratory distress, no accessory muscle use Cardiovascular: normal rate, regular rhythm, no gallop/murmur, no JVD Abdomen: normal bowel sounds, soft, non tender, no organomegaly, non distended Genitourinary: other - no garcía Extremities: no cyanosis Skin: no rash Neurologic/Psychiatric: floorhand II-XII grossly normal, 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 No evidence of extrauterine blood or abscess. Basilar atelectasis and trace bilateral pleural effusions. Other incidental findings as described above Chest x-ray - 06/18/19 - A single view chest radiograph was obtained. Findings: There is mild basal atelectasis are demonstrated. There is generalized attenuation of the lung bases due to breast implants. Heart size is normal. Bones are unremarkable. IMPRESSION: Basilar atelectasis Microbiology Date/Time Source Procedure Growth Status 06/17/19 18:35 Blood Blood Culture - Preliminary Streptococcus Group B Resulted 06/18/19 16:00 Sputum Gram Stain - Final Resulted 06/18/19 16:00 Sputum Sputum Culture - Preliminary NORMAL UPPER RESPIRATORY CATHRYN AT 24 ... Resulted 06/17/19 18:15 Urine,Clean Catch Urine Culture - Final NO GROWTH AFTER 48 HOURS Complete Laboratory Tests Test 06/19/19 03:10 06/19/19 14:15 White Blood Count 39.8 K/UL (4.8-10.8) *H 33.8 K/UL (4.8-10.8) *H Red Blood Count 3.12 M/UL (4.20-5.40) L 3.05 M/UL (4.20-5.40) L Hemoglobin 10.0 G/DL (12.0-16.0) L 9.7 G/DL (12.0-16.0) L Hematocrit 30.7 % (37.0-47.0) L 29.8 % (37.0-47.0) L Mean Corpuscular Volume 98 FL (80-99) 98 FL (80-99) Mean Corpuscular Hemoglobin 32.0 PG (27.0-31.0) H 31.7 PG (27.0-31.0) H Mean Corpuscular Hemoglobin Concent 32.5 G/DL (32.0-36.0) 32.5 G/DL (32.0-36.0) Red Cell Distribution Width 11.9 % (11.6-14.8) 11.7 % (11.6-14.8) Platelet Count 347 K/UL (150-450) 347 K/UL (150-450) Mean Platelet Volume 5.7 FL (6.5-10.1) L 5.7 FL (6.5-10.1) L Neutrophils (%) (Auto) % (45.0-75.0) % (45.0-75.0) Lymphocytes (%) (Auto) % (20.0-45.0) % (20.0-45.0) Monocytes (%) (Auto) % (1.0-10.0) % (1.0-10.0) Eosinophils (%) (Auto) % (0.0-3.0) % (0.0-3.0) Basophils (%) (Auto) % (0.0-2.0) % (0.0-2.0) Differential Total Cells Counted 100 100 Neutrophils % (Manual) 94 % (45-75) H 91 % (45-75) H Lymphocytes % (Manual) 3 % (20-45) L 4 % (20-45) L Monocytes % (Manual) 3 % (1-10) 3 % (1-10) Eosinophils % (Manual) 0 % (0-3) 0 % (0-3) Basophils % (Manual) 0 % (0-2) 1 % (0-2) Band Neutrophils 0 % (0-8) 1 % (0-8) Platelet Estimate Adequate Adequate Platelet Morphology Normal Normal Hypochromasia 1+ 1+ Anisocytosis 1+ 1+ Sodium Level 140 MMOL/L (136-145) Potassium Level 3.5 MMOL/L (3.5-5.1) Chloride Level 107 MMOL/L (98-107) Carbon Dioxide Level 23 MMOL/L (21-32) Anion Gap 10 mmol/L (5-15) Blood Urea Nitrogen 5 mg/dL (7-18) L Creatinine 0.8 MG/DL (0.55-1.30) Estimat Glomerular Filtration Rate > 60 mL/min (>60) Glucose Level 77 MG/DL (74-106) Calcium Level 9.0 MG/DL (8.5-10.1) Red Blood Cell Morphology Current Medications Medications (Trade) Dose Ordered Sig/Zully Route PRN Reason Start Time Stop Time Status Last Admin Dose Admin Acetaminophen (Tylenol) 650 mg Q6H PRN ORAL Mild Pain/Temp > 100.5 06/18/19 00:30 07/18/19 00:29 06/18/19 17:17 Clindamycin HCl/ Dextrose 50 ml @ 100 mls/hr Q8HR IV 06/18/19 06:00 06/25/19 05:59 06/19/19 14:40 Dextrose/ Electrolytes 1,000 ml @ 100 mls/hr Q10H IV 06/19/19 10:02 07/19/19 10:01 06/19/19 10:49 Docusate Sodium (Colace) 100 mg BID ORAL 06/18/19 18:00 07/18/19 17:59 06/19/19 09:01 Gentamicin Protocol (Gentamicin pharmacy to dose) 1 ea DAILY PRN MISC Per rx protocol 06/17/19 19:15 07/17/19 19:14 Gentamicin Sulfate 220 mg/ Sodium Chloride 115.5 ml @ 231 mls/hr Q24H IVPB 06/18/19 21:00 06/25/19 20:59 06/18/19 21:27 Iopamidol (Isovue-300 100ml) 100 ml NOW PRN INJ Radiology Procedure 06/17/19 18:45 06/19/19 18:44 Iopamidol (Isovue-300 100ml) 100 ml NOW PRN INJ Radiology Procedure 06/17/19 19:45 06/19/19 19:44 Iron Sucrose 100 mg/Sodium Chloride 60 ml @ 240 mls/hr BEDTIME IV 06/19/19 21:00 06/22/19 21:14 Vancomycin HCl (Vanco rx to dose) 1 ea DAILY PRN MISC Per rx protocol 06/18/19 11:15 07/18/19 11:14 Vancomycin HCl 500 mg/Dextrose 110 ml @ 110 mls/hr Q12HR@0200,1400 IVPB 06/18/19 14:00 06/23/19 13:59 06/19/19 14:40 Wilfrido Hollis MD Jun 19, 2019 16:26
--- NOTE | 2019-06-19 16:31 | General Progress Note ---
Assessment/Plan Assessment/Plan: 1. Sepsis with bacteremia due to group B strep 2. Status post vaginal myomectomy. 3. Hypertension history 4. Hypotension due to sepsis, resolved 5. Atelectasis looks good; WBC improving but still very high triple abx per ID explained need for IV abx at least 1 week repeat CXR Sunday daily cbc disc w , Dr Pope, [place] Subjective Constitutional: Reports: no symptoms Allergies: Coded Allergies: PENICILLINS (Verified Allergy, Severe, possible anaphylaxis, 06/19/19) possible anaphylaxis per H&P from Dr Diop, 06/18/19 SULFAMETHOXAZOLE (Verified Allergy, Intermediate, Hives, 06/19/19) possible anaphylaxis per H&P from Dr Diop, 06/18/19 Objective Last 24 Hour Vital Signs Date Time Temp Pulse Resp B/P (MAP) Pulse Ox O2 Delivery O2 Flow Rate FiO2 06/19/19 12:00 95 06/19/19 12:00 99.5 104 19 113/74 (87) 97 06/19/19 12:00 Room Air 06/19/19 08:00 98.4 108 19 119/77 (91) 97 06/19/19 08:00 Room Air 06/19/19 07:50 108 06/19/19 04:00 98.9 109 18 131/88 (102) 97 06/19/19 04:00 Room Air 06/19/19 03:29 104 06/19/19 00:00 Room Air 06/19/19 00:00 98.4 95 18 117/76 (90) 95 06/18/19 23:32 94 06/18/19 20:00 Room Air 06/18/19 20:00 97.5 108 18 110/72 (85) 96 06/18/19 19:23 114 Intake and Output 06/18/19 06/19/19 19:00 07:00 Intake Total 2110 ml 1475.5 ml Output Total 1400 ml 3450 ml Balance 710 ml -1974.5 ml Intake Oral 520 ml IV Total 1590 ml 1475.5 ml Output Urine Total 1400 ml 3450 ml # Voids 7 # Bowel Movements 1 Laboratory Tests 06/19/19 03:10: White Blood Count 39.8*H, Red Blood Count 3.12L, Hemoglobin 10.0L, Hematocrit 30.7L, Mean Corpuscular Volume 98, Mean Corpuscular Hemoglobin 32.0H, Mean Corpuscular Hemoglobin Concent 32.5, Red Cell Distribution Width 11.9, Platelet Count 347, Mean Platelet Volume 5.7L, Neutrophils (%) (Auto) , Lymphocytes (%) ( Auto) , Monocytes (%) (Auto) , Eosinophils (%) (Auto) , Basophils (%) (Auto) , Differential Total Cells Counted 100, Neutrophils % (Manual) 94H, Lymphocytes % (Manual) 3L, Monocytes % (Manual) 3, Eosinophils % (Manual) 0, Basophils % ( Manual) 0, Band Neutrophils 0, Platelet Estimate Adequate, Platelet Morphology Normal, Hypochromasia 1+, Anisocytosis 1+, Sodium Level 140, Potassium Level 3.5 , Chloride Level 107, Carbon Dioxide Level 23, Anion Gap 10, Blood Urea Nitrogen 5L, Creatinine 0.8, Estimat Glomerular Filtration Rate > 60, Glucose Level 77, Calcium Level 9.0 06/19/19 14:15: White Blood Count 33.8*H, Red Blood Count 3.05L, Hemoglobin 9.7L, Hematocrit 29.8L, Mean Corpuscular Volume 98, Mean Corpuscular Hemoglobin 31.7H, Mean Corpuscular Hemoglobin Concent 32.5, Red Cell Distribution Width 11.7, Platelet Count 347, Mean Platelet Volume 5.7L, Neutrophils (%) (Auto) , Lymphocytes (%) ( Auto) , Monocytes (%) (Auto) , Eosinophils (%) (Auto) , Basophils (%) (Auto) , Differential Total Cells Counted 100, Neutrophils % (Manual) 91H, Lymphocytes % (Manual) 4L, Monocytes % (Manual) 3, Eosinophils % (Manual) 0, Basophils % ( Manual) 1, Band Neutrophils 1, Platelet Estimate Adequate, Platelet Morphology Normal, Hypochromasia 1+, Anisocytosis 1+, Red Blood Cell Morphology Height (Feet): 5 Weight (Pounds): 103 General Appearance: WD/WN, no apparent distress, alert Cardiovascular: normal rate Respiratory/Chest: lungs clear Abdomen: non tender, soft Kenton Diop MD Jun 19, 2019 16:31
--- NOTE | 2019-06-19 16:59 | Diagnostic Imaging Report ---
Indication: History of dyspnea Technique: One view of the chest Comparison: 06/18/2019 Findings: Previously demonstrated reticular basilar opacities appear improved. Hazy basilar opacities are probably due to overlying soft tissue. No new infiltrates. No definite effusions. Heart size is normal. Impression: No definite acute process currently.
[2019-06-19 20:00] VITALS: BP 120/85
[2019-06-19] MEDS: GENTAMICIN IVPB SCH (20:45)
[2019-06-19] MEDS: NS IVPB SCH (20:45)
[2019-06-19] MEDS ORDERED: Iron Sucrose 100 MG in NS 55 ML IV SCH (21:00)
[2019-06-20] VITALS (7 sets, daily range): BP systolic 106–139; BP diastolic 74–97
[2019-06-20] MEDS: Vancomycin 750mg/D5W 275ml IVPB SCH ×4 (02:34→10:43)
[2019-06-20 04:09] LABS: HEMATOCRIT 28.9 % (37.0-47.0); HEMOGLOBIN 9.9 G/DL (12.0-16.0); MEAN CORPUSCULAR VOLUME 96 FL (80-99); PLATELET COUNT 324 K/UL (150-450); RED BLOOD COUNT 3.02 M/UL (4.20-5.40); RED CELL DISTRIBUTION WIDTH 11.7 % (11.6-14.8)
[2019-06-20 04:13] LABS: WHITE BLOOD COUNT 23.5 K/UL (4.8-10.8)
[2019-06-20 04:25] LABS: ANION GAP 9 mmol/L (5-15); BLOOD UREA NITROGEN 8 mg/dL (7-18); CALCIUM 8.8 MG/DL (8.5-10.1); CARBON DIOXIDE 22 MMOL/L (21-32); CHLORIDE 106 MMOL/L (98-107); CREATININE 0.8 MG/DL (0.55-1.30); POTASSIUM 3.8 MMOL/L (3.5-5.1); SODIUM 137 MMOL/L (136-145)
[2019-06-20] MEDS: Clindamycin 900mg 50 ML IV SCH ×3 (06:01→22:06)
[2019-06-20] MEDS: Docusate 100mg tablet ORAL SCH ×2 (09:01→17:59)
[2019-06-20] MEDS ORDERED: NS 275ml ONE (09:14)
[2019-06-20] MEDS ORDERED: Tubing IV Secondary IV ONE (09:14)
[2019-06-20] MEDS ORDERED: NS 500ML ONE (09:14)
--- NOTE | 2019-06-20 13:50 | Surgery Progress Note ---
Surgery Progress Note Subjective Additional Comments feeling much better today leukocytosis improving minimal pain no n/v/f/c Objective Last 24 Hour Vital Signs Date Time Temp Pulse Resp B/P (MAP) Pulse Ox O2 Delivery O2 Flow Rate FiO2 06/20/19 12:00 98.5 96 19 120/87 (98) 100 06/20/19 09:00 97.9 105 18 107/78 (88) 98 06/20/19 09:00 Room Air 06/20/19 04:00 98.6 90 18 122/81 (95) 96 06/20/19 04:00 Room Air 06/20/19 00:00 98.9 96 18 106/74 (85) 100 06/20/19 00:00 Room Air 06/19/19 20:00 98.8 100 18 120/85 (97) 100 06/19/19 20:00 Room Air 06/19/19 16:00 99.9 103 19 120/40 (66) 97 06/19/19 16:00 107 06/19/19 16:00 Room Air I&O Intake and Output 06/19/19 06/20/19 19:00 07:00 Intake Total 2440.0 ml 1210.500 ml Output Total 2600 ml 2000 ml Balance -160.0 ml -789.500 ml Intake Oral 960 ml IV Total 1480.0 ml 1210.500 ml Output Urine Total 2600 ml 2000 ml # Voids 4 # Bowel Movements 1 Cardiovascular: RSR Respiratory: clear Abdomen: soft, flat, non-tender, present bowel sounds Extremities: no cyanosis Laboratory Tests Test 06/19/19 14:15 06/20/19 00:50 06/20/19 04:00 White Blood Count 33.8 K/UL (4.8-10.8) *H 23.5 K/UL (4.8-10.8) *H Red Blood Count 3.05 M/UL (4.20-5.40) L 3.02 M/UL (4.20-5.40) L Hemoglobin 9.7 G/DL (12.0-16.0) L 9.9 G/DL (12.0-16.0) L Hematocrit 29.8 % (37.0-47.0) L 28.9 % (37.0-47.0) L Mean Corpuscular Volume 98 FL (80-99) 96 FL (80-99) Mean Corpuscular Hemoglobin 31.7 PG (27.0-31.0) H 32.9 PG (27.0-31.0) H Mean Corpuscular Hemoglobin Concent 32.5 G/DL (32.0-36.0) 34.4 G/DL (32.0-36.0) Red Cell Distribution Width 11.7 % (11.6-14.8) 11.7 % (11.6-14.8) Platelet Count 347 K/UL (150-450) 324 K/UL (150-450) Mean Platelet Volume 5.7 FL (6.5-10.1) L 5.6 FL (6.5-10.1) L Neutrophils (%) (Auto) % (45.0-75.0) % (45.0-75.0) Lymphocytes (%) (Auto) % (20.0-45.0) % (20.0-45.0) Monocytes (%) (Auto) % (1.0-10.0) % (1.0-10.0) Eosinophils (%) (Auto) % (0.0-3.0) % (0.0-3.0) Basophils (%) (Auto) % (0.0-2.0) % (0.0-2.0) Differential Total Cells Counted 100 100 Neutrophils % (Manual) 91 % (45-75) H 82 % (45-75) H Lymphocytes % (Manual) 4 % (20-45) L 9 % (20-45) L Monocytes % (Manual) 3 % (1-10) 9 % (1-10) Eosinophils % (Manual) 0 % (0-3) 0 % (0-3) Basophils % (Manual) 1 % (0-2) 0 % (0-2) Band Neutrophils 1 % (0-8) 0 % (0-8) Platelet Estimate Adequate Adequate Platelet Morphology Normal Normal Red Blood Cell Morphology Hypochromasia 1+ Anisocytosis 1+ Vancomycin Level Trough 4.7 ug/mL (5.0-12.0) L Macrocytosis 1+ Sodium Level 137 MMOL/L (136-145) Potassium Level 3.8 MMOL/L (3.5-5.1) Chloride Level 106 MMOL/L (98-107) Carbon Dioxide Level 22 MMOL/L (21-32) Anion Gap 9 mmol/L (5-15) Blood Urea Nitrogen 8 mg/dL (7-18) Creatinine 0.8 MG/DL (0.55-1.30) Estimat Glomerular Filtration Rate > 60 mL/min (>60) Glucose Level 106 MG/DL (74-106) Calcium Level 8.8 MG/DL (8.5-10.1) Plan Problems: (1) Abdominal pain Assessment & Plan: 53F abd pain, fevers, leukocytosis. 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
--- NOTE | 2019-06-20 15:14 | General Progress Note ---
Assessment/Plan Assessment/Plan: 1. Sepsis with bacteremia due to group B strep 2. Status post vaginal myomectomy. 3. Hypertension history 4. Hypotension due to sepsis, resolved 5. Atelectasis, resolved looks good; WBC improving triple abx per ID continue IV abx at least 1 week daily cbc disc w Telma Mckeon Subjective Constitutional: Reports: no symptoms Respiratory: Denies: shortness of breath Gastrointestinal/Abdominal: Denies: abdominal pain Allergies: Coded Allergies: PENICILLINS (Verified Allergy, Severe, possible anaphylaxis, 06/19/19) possible anaphylaxis per H&P from Dr Diop, 06/18/19 SULFAMETHOXAZOLE (Verified Allergy, Intermediate, Hives, 06/19/19) possible anaphylaxis per H&P from Dr Diop, 06/18/19 Objective Last 24 Hour Vital Signs Date Time Temp Pulse Resp B/P (MAP) Pulse Ox O2 Delivery O2 Flow Rate FiO2 06/20/19 12:00 98.5 96 19 120/87 (98) 100 06/20/19 09:00 97.9 105 18 107/78 (88) 98 06/20/19 09:00 Room Air 06/20/19 04:00 98.6 90 18 122/81 (95) 96 06/20/19 04:00 Room Air 06/20/19 00:00 98.9 96 18 106/74 (85) 100 06/20/19 00:00 Room Air 06/19/19 20:00 98.8 100 18 120/85 (97) 100 06/19/19 20:00 Room Air 06/19/19 16:00 99.9 103 19 120/40 (66) 97 06/19/19 16:00 107 06/19/19 16:00 Room Air Intake and Output 06/19/19 06/20/19 19:00 07:00 Intake Total 2440.0 ml 1210.500 ml Output Total 2600 ml 2000 ml Balance -160.0 ml -789.500 ml Intake Oral 960 ml IV Total 1480.0 ml 1210.500 ml Output Urine Total 2600 ml 2000 ml # Voids 4 # Bowel Movements 1 Laboratory Tests 06/20/19 00:50: Vancomycin Level Trough 4.7L 06/20/19 04:00: White Blood Count 23.5*H, Red Blood Count 3.02L, Hemoglobin 9.9L, Hematocrit 28.9L, Mean Corpuscular Volume 96, Mean Corpuscular Hemoglobin 32.9H, Mean Corpuscular Hemoglobin Concent 34.4, Red Cell Distribution Width 11.7, Platelet Count 324, Mean Platelet Volume 5.6L, Neutrophils (%) (Auto) , Lymphocytes (%) ( Auto) , Monocytes (%) (Auto) , Eosinophils (%) (Auto) , Basophils (%) (Auto) , Differential Total Cells Counted 100, Neutrophils % (Manual) 82H, Lymphocytes % (Manual) 9L, Monocytes % (Manual) 9, Eosinophils % (Manual) 0, Basophils % ( Manual) 0, Band Neutrophils 0, Platelet Estimate Adequate, Platelet Morphology Normal, Macrocytosis 1+, Sodium Level 137, Potassium Level 3.8, Chloride Level 106, Carbon Dioxide Level 22, Anion Gap 9, Blood Urea Nitrogen 8, Creatinine 0.8 , Estimat Glomerular Filtration Rate > 60, Glucose Level 106, Calcium Level 8.8 Height (Feet): 5 Weight (Pounds): 103 General Appearance: no apparent distress Neck: supple Cardiovascular: normal rate Respiratory/Chest: lungs clear Abdomen: non tender, soft Kenton Diop MD Jun 20, 2019 15:14
[2019-06-20] MEDS: GENTAMICIN IVPB SCH (20:44)
[2019-06-20] MEDS: Iron Sucrose 100 MG in NS 55 ML IV SCH (20:44)
[2019-06-20] MEDS: NS IVPB SCH (20:44)
[2019-06-20] MEDS ORDERED: Vancomycin 1 GM in NS 275 ML IVPB SCH (23:00)
[2019-06-20] MEDS: Vancomycin 1 GM in NS 275 ML IVPB SCH (23:34)
[2019-06-21] VITALS: BP 116/80
[2019-06-21 04:00] VITALS: BP 118/82
[2019-06-21] MEDS ORDERED: Clindamycin 900mg 50 ML IV ONE (05:27)
[2019-06-21] MEDS: Clindamycin 900mg 50 ML IV SCH ×3 (05:51→21:08)
[2019-06-21 06:19] LABS: BASOPHILS % (AUTO) 0.9 % (0.0-2.0); EOSINOPHILS % (AUTO) 0.9 % (0.0-3.0); HEMOGLOBIN 11.1 G/DL (12.0-16.0); LYMPHOCYTES % (AUTO) 7.5 % (20.0-45.0); MEAN CORPUSCULAR VOLUME 96 FL (80-99); MONOCYTES % (AUTO) 6.7 % (1.0-10.0); PLATELET COUNT 412 K/UL (150-450); RED BLOOD COUNT 3.42 M/UL (4.20-5.40); RED CELL DISTRIBUTION WIDTH 11.8 % (11.6-14.8); WHITE BLOOD COUNT 13.6 K/UL (4.8-10.8)
[2019-06-21 06:33] LABS: ANION GAP 9 mmol/L (5-15); BLOOD UREA NITROGEN 10 mg/dL (7-18); CALCIUM 9.3 MG/DL (8.5-10.1); CARBON DIOXIDE 23 MMOL/L (21-32); CHLORIDE 106 MMOL/L (98-107); CREATININE 0.8 MG/DL (0.55-1.30); POTASSIUM 4.5 MMOL/L (3.5-5.1); SODIUM 138 MMOL/L (136-145)
[2019-06-21 08:00] VITALS: BP 129/84
[2019-06-21] MEDS: Docusate 100mg tablet ORAL SCH ×2 (08:37→17:25)
[2019-06-21] MEDS ORDERED: Gentamicin Rx monitoring MISC PRN (09:00)
--- NOTE | 2019-06-21 09:09 | General Surgery Progress Note ---
General Surgery-Progress Note Subjective Procedure Performed hysteroscopy, myomectomy Symptoms: improved, pain absent, tolerating diet, voiding well, BM Objective Last 24 Hour Vital Signs Date Time Temp Pulse Resp B/P (MAP) Pulse Ox O2 Delivery O2 Flow Rate FiO2 06/21/19 08:00 98.0 98 16 129/84 (99) 98 06/21/19 04:00 98.7 92 18 118/82 (94) 95 06/21/19 00:00 98.4 93 18 116/80 (92) 96 06/20/19 21:00 Room Air 06/20/19 20:00 98.5 106 18 139/95 (110) 98 06/20/19 18:54 99.4 105 21 133/97 (109) 98 06/20/19 16:26 99.4 99 21 120/81 (94) 98 06/20/19 12:00 98.5 96 19 120/87 (98) 100 I&O Intake and Output 06/20/19 06/21/19 19:00 07:00 Intake Total 1385.000 ml 480 ml Output Total 1700 ml 2050 ml Balance -315.000 ml -1570 ml Intake Oral 1000 ml 480 ml IV Total 385.000 ml Output Urine Total 1700 ml 2050 ml # Voids 5 6 # Bowel Movements 1 Dressing: dry Wound: clean Drains: none Cardiovascular: RSR Respiratory: clear Abdomen: soft, flat, scaphoid, non-tender Extremities: no edema, no tenderness, no cyanosis Laboratory Tests Test 06/21/19 04:45 White Blood Count 13.6 K/UL (4.8-10.8) H Red Blood Count 3.42 M/UL (4.20-5.40) L Hemoglobin 11.1 G/DL (12.0-16.0) L Hematocrit 33.0 % (37.0-47.0) L Mean Corpuscular Volume 96 FL (80-99) Mean Corpuscular Hemoglobin 32.4 PG (27.0-31.0) H Mean Corpuscular Hemoglobin Concent 33.7 G/DL (32.0-36.0) Red Cell Distribution Width 11.8 % (11.6-14.8) Platelet Count 412 K/UL (150-450) Mean Platelet Volume 5.7 FL (6.5-10.1) L Neutrophils (%) (Auto) 84.0 % (45.0-75.0) H Lymphocytes (%) (Auto) 7.5 % (20.0-45.0) L Monocytes (%) (Auto) 6.7 % (1.0-10.0) Eosinophils (%) (Auto) 0.9 % (0.0-3.0) Basophils (%) (Auto) 0.9 % (0.0-2.0) Sodium Level 138 MMOL/L (136-145) Potassium Level 4.5 MMOL/L (3.5-5.1) Chloride Level 106 MMOL/L (98-107) Carbon Dioxide Level 23 MMOL/L (21-32) Anion Gap 9 mmol/L (5-15) Blood Urea Nitrogen 10 mg/dL (7-18) Creatinine 0.8 MG/DL (0.55-1.30) Estimat Glomerular Filtration Rate > 60 mL/min (>60) Glucose Level 93 MG/DL (74-106) Calcium Level 9.3 MG/DL (8.5-10.1) Additional Comments WBC down today Plan Additional Comments afebrile, will continue antibiotics until sunday. ambulate. Kyle Pope MD Jun 21, 2019 09:09
[2019-06-21] MEDS: Vancomycin 1 GM in NS 275 ML IVPB SCH ×2 (11:30→22:52)
[2019-06-21 12:00] VITALS: BP 131/71
--- NOTE | 2019-06-21 14:52 | Infectious Diseases Prog Note ---
Assessment/Plan Assessment/Plan A) 1) streptococcus group b bacteremia, sepsis, leukocytosis, ? pna chest x-ray neg now, fevers, s/p myomectomy, possible polymicrobial infection 2) hx fibroids and bleeding 3) hx HTN 4) allergies - pcn, sulfa - severe 5) sh-neg, fh-nc, meds noted, mar noted 6) d/w RN and patient P) 1) clindamycin, gentamicin and vancomycin day # 4 abx - clinically improved 2) CT without abscess, surveillance blood cultures negative 3) monitor temperatures and labs 4) d/w Dr. Mcconnell and Dr. Diop 5) d/w patient 6) surgery f/u - no surgery for now Subjective Constitutional: Denies: fever HEENT: Denies: visual change, c[place]za Respiratory: Denies: shortness of breath Cardiovascular: Denies: chest pain Gastrointestinal/Abdominal: Denies: nausea, vomiting, diarrhea Genitourinary: Reports: other - no garcía Neurologic: Denies: headache Psychiatric: Denies: depression Skin: Denies: rash Hematologic: Denies: bleeding Musculoskeletal: Denies: pain Allergies: Coded Allergies: PENICILLINS (Verified Allergy, Severe, possible anaphylaxis, 06/19/19) possible anaphylaxis per H&P from Dr Diop, 06/18/19 SULFAMETHOXAZOLE (Verified Allergy, Intermediate, Hives, 06/19/19) possible anaphylaxis per H&P from Dr Diop, 06/18/19 Objective Vital Signs Last 24 Hour Vital Signs Date Time Temp Pulse Resp B/P (MAP) Pulse Ox O2 Delivery O2 Flow Rate FiO2 06/21/19 12:00 98.6 114 16 131/71 (91) 95 06/21/19 09:00 Room Air 06/21/19 08:00 98.0 98 16 129/84 (99) 98 06/21/19 04:00 98.7 92 18 118/82 (94) 95 06/21/19 00:00 98.4 93 18 116/80 (92) 96 06/20/19 21:00 Room Air 06/20/19 20:00 98.5 106 18 139/95 (110) 98 06/20/19 18:54 99.4 105 21 133/97 (109) 98 06/20/19 16:26 99.4 99 21 120/81 (94) 98 Height (Feet): 5 Weight (Pounds): 103 General Appearance: no acute distress HEENT: normocephalic, atraumatic, anicteric Respiratory/Chest: lungs clear, normal breath sounds, no respiratory distress, no accessory muscle use Cardiovascular: normal rate, regular rhythm, no gallop/murmur, no JVD Abdomen: normal bowel sounds, soft, non tender, no organomegaly, non distended Genitourinary: other Extremities: no cyanosis Skin: no rash 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 No evidence of extrauterine blood or abscess. Basilar atelectasis and trace bilateral pleural effusions. Other incidental findings as described above Chest x-ray - 06/18/19 - A single view chest radiograph was obtained. Findings: There is mild basal atelectasis are demonstrated. There is generalized attenuation of the lung bases due to breast implants. Heart size is normal. Bones are unremarkable. IMPRESSION: Basilar atelectasis Microbiology Date/Time Source Procedure Growth Status 06/18/19 15:10 Blood Blood Culture - Preliminary NO GROWTH AFTER 48 HOURS Resulted 06/18/19 15:00 Blood Blood Culture - Preliminary NO GROWTH AFTER 48 HOURS Resulted 06/18/19 16:00 Sputum Gram Stain - Final Complete 06/18/19 16:00 Sputum Sputum Culture - Final NORMAL UPPER RESPIRATORY CATHRYN PRESENT Complete Laboratory Tests Test 06/21/19 04:45 White Blood Count 13.6 K/UL (4.8-10.8) H Red Blood Count 3.42 M/UL (4.20-5.40) L Hemoglobin 11.1 G/DL (12.0-16.0) L Hematocrit 33.0 % (37.0-47.0) L Mean Corpuscular Volume 96 FL (80-99) Mean Corpuscular Hemoglobin 32.4 PG (27.0-31.0) H Mean Corpuscular Hemoglobin Concent 33.7 G/DL (32.0-36.0) Red Cell Distribution Width 11.8 % (11.6-14.8) Platelet Count 412 K/UL (150-450) Mean Platelet Volume 5.7 FL (6.5-10.1) L Neutrophils (%) (Auto) 84.0 % (45.0-75.0) H Lymphocytes (%) (Auto) 7.5 % (20.0-45.0) L Monocytes (%) (Auto) 6.7 % (1.0-10.0) Eosinophils (%) (Auto) 0.9 % (0.0-3.0) Basophils (%) (Auto) 0.9 % (0.0-2.0) Sodium Level 138 MMOL/L (136-145) Potassium Level 4.5 MMOL/L (3.5-5.1) Chloride Level 106 MMOL/L (98-107) Carbon Dioxide Level 23 MMOL/L (21-32) Anion Gap 9 mmol/L (5-15) Blood Urea Nitrogen 10 mg/dL (7-18) Creatinine 0.8 MG/DL (0.55-1.30) Estimat Glomerular Filtration Rate > 60 mL/min (>60) Glucose Level 93 MG/DL (74-106) Calcium Level 9.3 MG/DL (8.5-10.1) Current Medications Medications (Trade) Dose Ordered Sig/Zully Route PRN Reason Start Time Stop Time Status Last Admin Dose Admin Acetaminophen (Tylenol) 650 mg Q6H PRN ORAL Mild Pain/Temp > 100.5 06/20/19 18:30 07/18/19 00:29 06/21/19 07:52 Clindamycin HCl/ Dextrose 50 ml @ 100 mls/hr Q8HR IV 06/20/19 22:00 06/25/19 05:59 06/21/19 05:51 Docusate Sodium (Colace) 100 mg BID ORAL 06/21/19 09:00 07/18/19 17:59 06/21/19 08:37 Gentamicin Protocol (Gentamicin pharmacy to dose) 1 ea DAILY PRN MISC Per rx protocol 06/21/19 09:00 07/17/19 19:14 Gentamicin Sulfate 220 mg/ Sodium Chloride 115.5 ml @ 231 mls/hr Q24H IVPB 06/20/19 21:00 06/25/19 20:59 06/20/19 20:44 Iron Sucrose 100 mg/Sodium Chloride 60 ml @ 240 mls/hr BEDTIME IV 06/20/19 21:00 06/22/19 21:14 06/20/19 20:44 Vancomycin HCl (Vanco rx to dose) 1 ea DAILY PRN MISC Per rx protocol 06/21/19 09:00 07/18/19 11:14 Vancomycin HCl 1 gm/Sodium Chloride 275 ml @ 183.708 mls/hr Q12H IVPB 06/20/19 23:00 06/25/19 22:59 06/21/19 11:30 Wilfrido Hollis MD Jun 21, 2019 14:52
--- NOTE | 2019-06-21 15:11 | Cardiology Report ---
APPROVED REPORT EKG Measurement Heart [id number] Sinus tachycardia Possible Left atrial enlargement Borderline ECG
[2019-06-21 16:00] VITALS: BP 111/79
[2019-06-21] MEDS ORDERED: Tubing IV Secondary IV ONE ×2 (17:17→17:29)
[2019-06-21] MEDS: Lactobacillus-GG tablet ORAL SCH (17:25)
[2019-06-21] MEDS ORDERED: NS 500ML ONE (17:29)
[2019-06-21 20:00] VITALS: BP 122/88
--- NOTE | 2019-06-21 20:11 | Pulmonology Progress Note ---
Assessment/Plan Assessment/Plan 1. Sepsis with bacteremia due to group B strep 2. Status post vaginal myomectomy. 3. Hypertension history 4. Hypotension due to sepsis, resolved 5. Atelectasis, resolved looks good; WBC improving continue IV abx at least 1 week daily cbc Subjective Constitutional: Reports: no symptoms Respiratory: Reports: no symptoms Cardiovascular: Reports: no symptoms Genitourinary: Reports: no symptoms Allergies: Coded Allergies: PENICILLINS (Verified Allergy, Severe, possible anaphylaxis, 06/19/19) possible anaphylaxis per H&P from Dr Diop, 06/18/19 SULFAMETHOXAZOLE (Verified Allergy, Intermediate, Hives, 06/19/19) possible anaphylaxis per H&P from Dr Diop, 06/18/19 Subjective doing well minimal bleeding no fever no nv toleraeting po oob Objective Last 24 Hour Vital Signs Date Time Temp Pulse Resp B/P (MAP) Pulse Ox O2 Delivery O2 Flow Rate FiO2 06/21/19 16:00 97.8 95 15 111/79 (90) 99 06/21/19 12:00 98.6 114 16 131/71 (91) 95 06/21/19 09:00 Room Air 06/21/19 08:00 98.0 98 16 129/84 (99) 98 06/21/19 04:00 98.7 92 18 118/82 (94) 95 06/21/19 00:00 98.4 93 18 116/80 (92) 96 06/20/19 21:00 Room Air Intake and Output 06/20/19 06/21/19 18:59 06:59 Intake Total 1445.000 ml 480 ml Output Total 1700 ml 2050 ml Balance -255.000 ml -1570 ml Intake Oral 1000 ml 480 ml IV Total 445.000 ml Output Urine Total 1700 ml 2050 ml # Voids 5 6 # Bowel Movements 1 General Appearance: WD/WN Respiratory/Chest: lungs clear Cardiovascular: normal rate Abdomen: soft, non tender Extremities: no cyanosis Skin: no lesions 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 normal, alert, oriented x 3, responsive Laboratory Tests 06/21/19 04:45: White Blood Count 13.6H, Red Blood Count 3.42L, Hemoglobin 11.1L, Hematocrit 33.0L, Mean Corpuscular Volume 96, Mean Corpuscular Hemoglobin 32.4H, Mean Corpuscular Hemoglobin Concent 33.7, Red Cell Distribution Width 11.8, Platelet Count 412, Mean Platelet Volume 5.7L, Neutrophils (%) (Auto) 84.0H, Lymphocytes (%) (Auto) 7.5L, Monocytes (%) (Auto) 6.7, Eosinophils (%) (Auto) 0.9, Basophils (%) (Auto) 0.9, Sodium Level 138, Potassium Level 4.5, Chloride Level 106, Carbon Dioxide Level 23, Anion Gap 9, Blood Urea Nitrogen 10, Creatinine 0.8, Estimat Glomerular Filtration Rate > 60, Glucose Level 93, Calcium Level 9.3 Current Medications Medications (Trade) Dose Ordered Sig/Zully Route PRN Reason Start Time Stop Time Status Last Admin Dose Admin Acetaminophen (Tylenol) 650 mg Q6H PRN ORAL Mild Pain/Temp > 100.5 06/20/19 18:30 07/18/19 00:29 06/21/19 07:52 Clindamycin HCl/ Dextrose 50 ml @ 100 mls/hr Q8HR IV 06/20/19 22:00 06/25/19 05:59 06/21/19 14:31 Docusate Sodium (Colace) 100 mg BID ORAL 06/21/19 09:00 07/18/19 17:59 06/21/19 17:25 Gentamicin Protocol (Gentamicin pharmacy to dose) 1 ea DAILY PRN MISC Per rx protocol 06/21/19 09:00 07/17/19 19:14 Gentamicin Sulfate 220 mg/ Sodium Chloride 115.5 ml @ 231 mls/hr Q24H IVPB 06/20/19 21:00 06/25/19 20:59 06/20/19 20:44 Iron Sucrose 100 mg/Sodium Chloride 60 ml @ 240 mls/hr BEDTIME IV 06/20/19 21:00 06/22/19 21:14 06/20/19 20:44 Lactobacillus Acidophilus (Culturelle) 1 tab TWICE A DAY ORAL 06/21/19 18:00 07/21/19 17:59 06/21/19 17:25 Vancomycin HCl (Vanco rx to dose) 1 ea DAILY PRN MISC Per rx protocol 06/21/19 09:00 07/18/19 11:14 Vancomycin HCl 1 gm/Sodium Chloride 275 ml @ 183.708 mls/hr Q12H IVPB 06/20/19 23:00 06/25/19 22:59 06/21/19 11:30 Hortensia Morris DO Jun 21, 2019 20:11
[2019-06-21] MEDS: Iron Sucrose 100 MG in NS 55 ML IV SCH (20:22)
[2019-06-21] MEDS: GENTAMICIN IVPB SCH (21:02)
[2019-06-21] MEDS: NS IVPB SCH (21:02)
[2019-06-22] VITALS: BP 107/69
[2019-06-22 04:00] VITALS: BP 127/66
[2019-06-22] MEDS: Clindamycin 900mg 50 ML IV SCH ×3 (06:02→22:20)
[2019-06-22 06:30] LABS: BASOPHILS % (AUTO) 1.4 % (0.0-2.0); EOSINOPHILS % (AUTO) 1.2 % (0.0-3.0); HEMATOCRIT 34.9 % (37.0-47.0); HEMOGLOBIN 11.8 G/DL (12.0-16.0); MEAN CORPUSCULAR VOLUME 97 FL (80-99); MONOCYTES % (AUTO) 9.4 % (1.0-10.0); NEUTROPHILS % (AUTO) 79.1 % (45.0-75.0); PLATELET COUNT 457 K/UL (150-450); RED BLOOD COUNT 3.61 M/UL (4.20-5.40); RED CELL DISTRIBUTION WIDTH 11.7 % (11.6-14.8); WHITE BLOOD COUNT 12.2 K/UL (4.8-10.8)
[2019-06-22 06:48] LABS: ANION GAP 9 mmol/L (5-15); BLOOD UREA NITROGEN 11 mg/dL (7-18); CALCIUM 9.5 MG/DL (8.5-10.1); CARBON DIOXIDE 25 MMOL/L (21-32); CHLORIDE 105 MMOL/L (98-107); CREATININE 0.9 MG/DL (0.55-1.30); POTASSIUM 4.4 MMOL/L (3.5-5.1); SODIUM 139 MMOL/L (136-145)
[2019-06-22 08:00] VITALS: BP 109/81
[2019-06-22] MEDS: Docusate 100mg tablet ORAL SCH ×2 (08:59→18:10)
[2019-06-22] MEDS: Lactobacillus-GG tablet ORAL SCH ×2 (08:59→18:10)
[2019-06-22] MEDS: Vancomycin 1 GM in NS 275 ML IVPB SCH ×2 (11:36→22:20)
[2019-06-22 12:00] VITALS: BP 128/85
--- NOTE | 2019-06-22 12:42 | Infectious Diseases Prog Note ---
Assessment/Plan Assessment/Plan A) 1) streptococcus group b bacteremia, sepsis, leukocytosis, ? pna chest x-ray neg now, fevers, s/p myomectomy, possible polymicrobial infection 2) hx fibroids and bleeding 3) hx HTN 4) allergies - pcn, sulfa - severe 5) sh-neg, fh-nc, meds noted, mar noted 6) d/w RN and patient P) 1) clindamycin, gentamicin and vancomycin day # 5 abx - clinically improved 2) CT without abscess, surveillance blood cultures negative 3) monitor temperatures and labs 4) d/w Dr. Mcconnell and Dr. Diop 5) d/w patient 6) surgery f/u - no surgery for now Subjective Constitutional: Denies: fever HEENT: Denies: congestion Respiratory: Denies: shortness of breath Cardiovascular: Denies: chest pain Gastrointestinal/Abdominal: Denies: nausea, vomiting, diarrhea Allergies: Coded Allergies: PENICILLINS (Verified Allergy, Severe, possible anaphylaxis, 06/19/19) possible anaphylaxis per H&P from Dr Diop, 06/18/19 SULFAMETHOXAZOLE (Verified Allergy, Intermediate, Hives, 06/19/19) possible anaphylaxis per H&P from Dr Diop, 06/18/19 Objective Vital Signs Last 24 Hour Vital Signs Date Time Temp Pulse Resp B/P (MAP) Pulse Ox O2 Delivery O2 Flow Rate FiO2 06/22/19 12:00 98.2 96 20 128/85 (99) 96 06/22/19 09:00 Room Air 06/22/19 08:00 98.4 101 20 109/81 (90) 99 06/22/19 04:00 98.3 95 18 127/66 (86) 99 06/22/19 00:00 97.1 93 18 107/69 (82) 97 06/21/19 21:00 Room Air 06/21/19 20:00 98.9 102 18 122/88 (99) 97 06/21/19 16:00 97.8 95 15 111/79 (90) 99 Height (Feet): 5 Weight (Pounds): 103 HEENT: normocephalic, atraumatic, anicteric, mucous membranes moist Respiratory/Chest: no respiratory distress, no accessory muscle use Abdomen: normal bowel sounds, soft, non tender Objective CT abdomen and pelvis: IMPRESSION: Post hysteroscopic removal of the intrauterine fibroid with some residual blood and air within the endometrial canal. No evidence of extrauterine blood or abscess. Basilar atelectasis and trace bilateral pleural effusions. Other incidental findings as described above Chest x-ray - 06/18/19 - A single view chest radiograph was obtained. Findings: There is mild basal atelectasis are demonstrated. There is generalized attenuation of the lung bases due to breast implants. Heart size is normal. Bones are unremarkable. IMPRESSION: Basilar atelectasis Laboratory Tests Test 06/22/19 05:10 06/22/19 10:00 White Blood Count 12.2 K/UL (4.8-10.8) H Red Blood Count 3.61 M/UL (4.20-5.40) L Hemoglobin 11.8 G/DL (12.0-16.0) L Hematocrit 34.9 % (37.0-47.0) L Mean Corpuscular Volume 97 FL (80-99) Mean Corpuscular Hemoglobin 32.6 PG (27.0-31.0) H Mean Corpuscular Hemoglobin Concent 33.8 G/DL (32.0-36.0) Red Cell Distribution Width 11.7 % (11.6-14.8) Platelet Count 457 K/UL (150-450) H Mean Platelet Volume 5.9 FL (6.5-10.1) L Neutrophils (%) (Auto) 79.1 % (45.0-75.0) H Lymphocytes (%) (Auto) 9.0 % (20.0-45.0) L Monocytes (%) (Auto) 9.4 % (1.0-10.0) Eosinophils (%) (Auto) 1.2 % (0.0-3.0) Basophils (%) (Auto) 1.4 % (0.0-2.0) Sodium Level 139 MMOL/L (136-145) Potassium Level 4.4 MMOL/L (3.5-5.1) Chloride Level 105 MMOL/L (98-107) Carbon Dioxide Level 25 MMOL/L (21-32) Anion Gap 9 mmol/L (5-15) Blood Urea Nitrogen 11 mg/dL (7-18) Creatinine 0.9 MG/DL (0.55-1.30) Estimat Glomerular Filtration Rate > 60 mL/min (>60) Glucose Level 92 MG/DL (74-106) Calcium Level 9.5 MG/DL (8.5-10.1) Vancomycin Level Trough 15.2 ug/mL (5.0-12.0) H Current Medications Medications (Trade) Dose Ordered Sig/Zully Route PRN Reason Start Time Stop Time Status Last Admin Dose Admin Acetaminophen (Tylenol) 650 mg Q6H PRN ORAL Mild Pain/Temp > 100.5 06/20/19 18:30 07/18/19 00:29 06/22/19 11:46 Clindamycin HCl/ Dextrose 50 ml @ 100 mls/hr Q8HR IV 06/20/19 22:00 06/25/19 05:59 06/22/19 06:02 Docusate Sodium (Colace) 100 mg BID ORAL 06/21/19 09:00 07/18/19 17:59 06/22/19 08:59 Gentamicin Protocol (Gentamicin pharmacy to dose) 1 ea DAILY PRN MISC Per rx protocol 06/21/19 09:00 07/17/19 19:14 Gentamicin Sulfate 220 mg/ Sodium Chloride 115.5 ml @ 231 mls/hr Q24H IVPB 06/20/19 21:00 06/25/19 20:59 06/21/19 21:02 Iron Sucrose 100 mg/Sodium Chloride 60 ml @ 240 mls/hr BEDTIME IV 06/20/19 21:00 06/22/19 21:14 06/21/19 20:22 Lactobacillus Acidophilus (Culturelle) 1 tab TWICE A DAY ORAL 06/21/19 18:00 07/21/19 17:59 06/22/19 08:59 Vancomycin HCl (Vanco rx to dose) 1 ea DAILY PRN MISC Per rx protocol 06/21/19 09:00 07/18/19 11:14 Vancomycin HCl 1 gm/Sodium Chloride 275 ml @ 183.708 mls/hr Q12H IVPB 06/20/19 23:00 06/25/19 22:59 06/22/19 11:36 Wilfrido Hollis MD Jun 22, 2019 12:42
--- NOTE | 2019-06-22 15:02 | General Surgery Progress Note ---
General Surgery-Progress Note Subjective Procedure Performed hysteroscopy, myomectomy Symptoms: improved, tolerating diet, voiding well, BM Objective Last 24 Hour Vital Signs Date Time Temp Pulse Resp B/P (MAP) Pulse Ox O2 Delivery O2 Flow Rate FiO2 06/22/19 12:00 98.2 96 20 128/85 (99) 96 06/22/19 09:00 Room Air 06/22/19 08:00 98.4 101 20 109/81 (90) 99 06/22/19 04:00 98.3 95 18 127/66 (86) 99 06/22/19 00:00 97.1 93 18 107/69 (82) 97 06/21/19 21:00 Room Air 06/21/19 20:00 98.9 102 18 122/88 (99) 97 06/21/19 16:00 97.8 95 15 111/79 (90) 99 I&O Intake and Output 06/21/19 06/22/19 19:00 07:00 Intake Total 1225.000 ml 642.916 ml Output Total 1000 ml 1600 ml Balance 225.000 ml -957.084 ml Intake Oral 900 ml IV Total 325.000 ml 642.916 ml Output Urine Total 1000 ml 1600 ml # Voids 5 2 # Bowel Movements 2 Dressing: dry Wound: clean Drains: none Cardiovascular: RSR Abdomen: soft, flat, scaphoid, present bowel sounds Extremities: no edema, no tenderness, no cyanosis Laboratory Tests Test 06/22/19 05:10 06/22/19 10:00 White Blood Count 12.2 K/UL (4.8-10.8) H Red Blood Count 3.61 M/UL (4.20-5.40) L Hemoglobin 11.8 G/DL (12.0-16.0) L Hematocrit 34.9 % (37.0-47.0) L Mean Corpuscular Volume 97 FL (80-99) Mean Corpuscular Hemoglobin 32.6 PG (27.0-31.0) H Mean Corpuscular Hemoglobin Concent 33.8 G/DL (32.0-36.0) Red Cell Distribution Width 11.7 % (11.6-14.8) Platelet Count 457 K/UL (150-450) H Mean Platelet Volume 5.9 FL (6.5-10.1) L Neutrophils (%) (Auto) 79.1 % (45.0-75.0) H Lymphocytes (%) (Auto) 9.0 % (20.0-45.0) L Monocytes (%) (Auto) 9.4 % (1.0-10.0) Eosinophils (%) (Auto) 1.2 % (0.0-3.0) Basophils (%) (Auto) 1.4 % (0.0-2.0) Sodium Level 139 MMOL/L (136-145) Potassium Level 4.4 MMOL/L (3.5-5.1) Chloride Level 105 MMOL/L (98-107) Carbon Dioxide Level 25 MMOL/L (21-32) Anion Gap 9 mmol/L (5-15) Blood Urea Nitrogen 11 mg/dL (7-18) Creatinine 0.9 MG/DL (0.55-1.30) Estimat Glomerular Filtration Rate > 60 mL/min (>60) Glucose Level 92 MG/DL (74-106) Calcium Level 9.5 MG/DL (8.5-10.1) Vancomycin Level Trough 15.2 ug/mL (5.0-12.0) H Additional Comments wbc down again today. tachycardia resolving, anemia improving, afebrile Plan Additional Comments telephone only visit today with patient and ID consult. doing well anticipate mid week discharge. Kyle Pope MD Jun 22, 2019 15:01
[2019-06-22 16:00] VITALS: BP 119/82
[2019-06-22 20:00] VITALS: BP 131/89
--- NOTE | 2019-06-22 20:33 | Pulmonology Progress Note ---
Assessment/Plan Assessment/Plan 1. Sepsis with bacteremia due to group B strep 2. Status post vaginal myomectomy. 3. Hypertension history 4. Hypotension due to sepsis, resolved 5. Atelectasis, resolved looks good; WBC improving continue IV abx at least 1 week daily cbc dc planning Subjective HEENT: Repors: no symptoms Respiratory: Reports: no symptoms Cardiovascular: Reports: no symptoms Gastrointestinal/Abdominal: Reports: no symptoms Genitourinary: Reports: no symptoms Allergies: Coded Allergies: PENICILLINS (Verified Allergy, Severe, possible anaphylaxis, 06/19/19) possible anaphylaxis per H&P from Dr Diop, 06/18/19 SULFAMETHOXAZOLE (Verified Allergy, Intermediate, Hives, 06/19/19) possible anaphylaxis per H&P from Dr Diop, 06/18/19 Subjective doing well no bleeding no fever no nv tolerating po oob Objective Last 24 Hour Vital Signs Date Time Temp Pulse Resp B/P (MAP) Pulse Ox O2 Delivery O2 Flow Rate FiO2 06/22/19 20:00 97.7 99 18 131/89 (103) 98 06/22/19 16:00 97.1 79 20 119/82 (94) 99 06/22/19 12:00 98.2 96 20 128/85 (99) 96 06/22/19 09:00 Room Air 06/22/19 08:00 98.4 101 20 109/81 (90) 99 06/22/19 04:00 98.3 95 18 127/66 (86) 99 06/22/19 00:00 97.1 93 18 107/69 (82) 97 06/21/19 21:00 Room Air Intake and Output 06/21/19 06/22/19 18:59 06:59 Intake Total 1225.000 ml 642.916 ml Output Total 1000 ml 1600 ml Balance 225.000 ml -957.084 ml Intake Oral 900 ml IV Total 325.000 ml 642.916 ml Output Urine Total 1000 ml 1600 ml # Voids 5 2 # Bowel Movements 2 General Appearance: WD/WN Respiratory/Chest: lungs clear, normal breath sounds Cardiovascular: normal rate, regular rhythm Abdomen: soft, non tender, no organomegaly Skin: no rash Neurologic/Psychiatric: alert, oriented x 3, responsive Laboratory Tests 06/22/19 05:10: White Blood Count 12.2H, Red Blood Count 3.61L, Hemoglobin 11.8L, Hematocrit 34.9L, Mean Corpuscular Volume 97, Mean Corpuscular Hemoglobin 32.6H, Mean Corpuscular Hemoglobin Concent 33.8, Red Cell Distribution Width 11.7, Platelet Count 457H, Mean Platelet Volume 5.9L, Neutrophils (%) (Auto) 79.1H, Lymphocytes (%) (Auto) 9.0L, Monocytes (%) (Auto) 9.4, Eosinophils (%) (Auto) 1.2, Basophils (%) (Auto) 1.4, Sodium Level 139, Potassium Level 4.4, Chloride Level 105, Carbon Dioxide Level 25, Anion Gap 9, Blood Urea Nitrogen 11, Creatinine 0.9, Estimat Glomerular Filtration Rate > 60, Glucose Level 92, Calcium Level 9.5 06/22/19 10:00: Vancomycin Level Trough 15.2H Current Medications Medications (Trade) Dose Ordered Sig/Zully Route PRN Reason Start Time Stop Time Status Last Admin Dose Admin Acetaminophen (Tylenol) 650 mg Q6H PRN ORAL Mild Pain/Temp > 100.5 06/20/19 18:30 07/18/19 00:29 06/22/19 11:46 Clindamycin HCl/ Dextrose 50 ml @ 100 mls/hr Q8HR IV 06/20/19 22:00 06/25/19 05:59 06/22/19 14:56 Docusate Sodium (Colace) 100 mg BID ORAL 06/21/19 09:00 07/18/19 17:59 06/22/19 18:10 Gentamicin Protocol (Gentamicin pharmacy to dose) 1 ea DAILY PRN MISC Per rx protocol 06/21/19 09:00 07/17/19 19:14 Gentamicin Sulfate 220 mg/ Sodium Chloride 115.5 ml @ 231 mls/hr Q24H IVPB 06/20/19 21:00 06/25/19 20:59 06/21/19 21:02 Iron Sucrose 100 mg/Sodium Chloride 60 ml @ 240 mls/hr BEDTIME IV 06/20/19 21:00 06/22/19 21:14 06/21/19 20:22 Lactobacillus Acidophilus (Culturelle) 1 tab TWICE A DAY ORAL 06/21/19 18:00 07/21/19 17:59 06/22/19 18:10 Vancomycin HCl (Vanco rx to dose) 1 ea DAILY PRN MISC Per rx protocol 06/21/19 09:00 07/18/19 11:14 Vancomycin HCl 1 gm/Sodium Chloride 275 ml @ 183.708 mls/hr Q12H IVPB 06/20/19 23:00 06/25/19 22:59 06/22/19 11:36 Hortensia Morris DO Jun 22, 2019 20:33
[2019-06-22] MEDS: Iron Sucrose 100 MG in NS 55 ML IV SCH (20:36)
[2019-06-22] MEDS: NS IVPB SCH (20:37)
[2019-06-22] MEDS: GENTAMICIN IVPB SCH (20:37)
[2019-06-23] VITALS: BP 115/79
[2019-06-23 04:00] VITALS: BP 106/74
[2019-06-23] MEDS: Clindamycin 900mg 50 ML IV SCH ×3 (05:44→22:47)
[2019-06-23 06:34] LABS: BASOPHILS % (AUTO) 1.3 % (0.0-2.0); EOSINOPHILS % (AUTO) 0.7 % (0.0-3.0); HEMATOCRIT 35.7 % (37.0-47.0); HEMOGLOBIN 11.8 G/DL (12.0-16.0); LYMPHOCYTES % (AUTO) 10.1 % (20.0-45.0); MEAN CORPUSCULAR VOLUME 98 FL (80-99); MONOCYTES % (AUTO) 7.5 % (1.0-10.0); NEUTROPHILS % (AUTO) 80.3 % (45.0-75.0); PLATELET COUNT 471 K/UL (150-450); RED BLOOD COUNT 3.66 M/UL (4.20-5.40); RED CELL DISTRIBUTION WIDTH 12.1 % (11.6-14.8); WHITE BLOOD COUNT 13.2 K/UL (4.8-10.8)
[2019-06-23 06:54] LABS: ANION GAP 9 mmol/L (5-15); BLOOD UREA NITROGEN 11 mg/dL (7-18); CALCIUM 9.3 MG/DL (8.5-10.1); CARBON DIOXIDE 24 MMOL/L (21-32); CHLORIDE 106 MMOL/L (98-107); CREATININE 0.9 MG/DL (0.55-1.30); POTASSIUM 4.8 MMOL/L (3.5-5.1); SODIUM 139 MMOL/L (136-145)
[2019-06-23 08:00] VITALS: BP 122/84
[2019-06-23] MEDS: Docusate 100mg tablet ORAL SCH ×2 (09:47→18:21)
[2019-06-23] MEDS: Lactobacillus-GG tablet ORAL SCH ×2 (09:47→18:21)
[2019-06-23] MEDS: Vancomycin 1 GM in NS 275 ML IVPB SCH ×2 (09:48→23:19)
[2019-06-23] MEDS ORDERED: Tubing IV Secondary IV ONE ×2 (09:59→13:55)
--- NOTE | 2019-06-23 10:55 | Surgery Progress Note ---
Surgery Progress Note Subjective Additional Comments afebrile, HD stable, leukocytosis lingering but states she feels well tolerating diet no abd pain. no n/v/f/c. Objective Last 24 Hour Vital Signs Date Time Temp Pulse Resp B/P (MAP) Pulse Ox O2 Delivery O2 Flow Rate FiO2 06/23/19 04:00 98.1 87 16 106/74 (85) 98 06/23/19 00:00 97.5 86 18 115/79 (91) 99 06/22/19 21:00 Room Air 06/22/19 20:00 97.7 99 18 131/89 (103) 98 06/22/19 16:00 97.1 79 20 119/82 (94) 99 06/22/19 12:00 98.2 96 20 128/85 (99) 96 I&O Intake and Output 06/22/19 06/23/19 19:00 07:00 Intake Total 925.000 ml 1220.500 ml Output Total 1550 ml 1100 ml Balance -625.000 ml 120.500 ml Intake Oral 600 ml 720 ml IV Total 325.000 ml 500.500 ml Output Urine Total 1550 ml 1100 ml # Voids 8 5 # Bowel Movements 2 Cardiovascular: RSR Respiratory: clear Abdomen: soft, flat, non-tender, present bowel sounds Extremities: no edema, no tenderness, no cyanosis Laboratory Tests Test 06/23/19 05:20 White Blood Count 13.2 K/UL (4.8-10.8) H Red Blood Count 3.66 M/UL (4.20-5.40) L Hemoglobin 11.8 G/DL (12.0-16.0) L Hematocrit 35.7 % (37.0-47.0) L Mean Corpuscular Volume 98 FL (80-99) Mean Corpuscular Hemoglobin 32.2 PG (27.0-31.0) H Mean Corpuscular Hemoglobin Concent 33.0 G/DL (32.0-36.0) Red Cell Distribution Width 12.1 % (11.6-14.8) Platelet Count 471 K/UL (150-450) H Mean Platelet Volume 5.6 FL (6.5-10.1) L Neutrophils (%) (Auto) 80.3 % (45.0-75.0) H Lymphocytes (%) (Auto) 10.1 % (20.0-45.0) L Monocytes (%) (Auto) 7.5 % (1.0-10.0) Eosinophils (%) (Auto) 0.7 % (0.0-3.0) Basophils (%) (Auto) 1.3 % (0.0-2.0) Sodium Level 139 MMOL/L (136-145) Potassium Level 4.8 MMOL/L (3.5-5.1) Chloride Level 106 MMOL/L (98-107) Carbon Dioxide Level 24 MMOL/L (21-32) Anion Gap 9 mmol/L (5-15) Blood Urea Nitrogen 11 mg/dL (7-18) Creatinine 0.9 MG/DL (0.55-1.30) Estimat Glomerular Filtration Rate > 60 mL/min (>60) Glucose Level 94 MG/DL (74-106) Calcium Level 9.3 MG/DL (8.5-10.1) Plan Problems: (1) Abdominal pain Assessment & Plan: 53F abd pain, fevers, leukocytosis now resoling abd soft, no distention, now non tender no n/v nml bm unlikely appy or gian or bowel issue given exam agree likely related to recent surgery as anticipated and improved improving with Abx cont with current care plan trend labs AM CBC appreciate ID input thank you will follow with recs (2) Sepsis Assessment & Plan: as above cont abx Earl Gaspar Jun 23, 2019 10:55
[2019-06-23 12:00] VITALS: BP 111/73
--- NOTE | 2019-06-23 12:37 | Pulmonology Progress Note ---
Assessment/Plan Problems: (1) Sepsis (2) Abdominal pain Assessment/Plan Continue IV Abx per ID ----> will discuss with ID Re: transitioning to PO Abx the next few days vs ? home with home IV Abx Encourage OOB Supportive care Subjective Allergies: Coded Allergies: PENICILLINS (Verified Allergy, Severe, possible anaphylaxis, 06/19/19) possible anaphylaxis per H&P from Dr Diop, 06/18/19 SULFAMETHOXAZOLE (Verified Allergy, Intermediate, Hives, 06/19/19) possible anaphylaxis per H&P from Dr Diop, 06/18/19 Subjective AFVSS on RA WCT stable No pain, no FC, no CP, no SOB Objective Last 24 Hour Vital Signs Date Time Temp Pulse Resp B/P (MAP) Pulse Ox O2 Delivery O2 Flow Rate FiO2 06/23/19 09:00 Room Air 06/23/19 08:00 98.8 95 18 122/84 (97) 99 06/23/19 04:00 98.1 87 16 106/74 (85) 98 06/23/19 00:00 97.5 86 18 115/79 (91) 99 06/22/19 21:00 Room Air 06/22/19 20:00 97.7 99 18 131/89 (103) 98 06/22/19 16:00 97.1 79 20 119/82 (94) 99 Intake and Output 06/22/19 06/23/19 19:00 07:00 Intake Total 925.000 ml 1220.500 ml Output Total 1550 ml 1100 ml Balance -625.000 ml 120.500 ml Intake Oral 600 ml 720 ml IV Total 325.000 ml 500.500 ml Output Urine Total 1550 ml 1100 ml # Voids 8 5 # Bowel Movements 2 General Appearance: WD/WN, no acute distress HEENT: normocephalic, atraumatic, anicteric, mucous membranes moist Respiratory/Chest: chest wall non-tender, lungs clear, normal breath sounds, no respiratory distress, no accessory muscle use Cardiovascular: normal peripheral pulses, normal rate, regular rhythm Extremities: no cyanosis, no clubbing, no edema Laboratory Tests 06/23/19 05:20: White Blood Count 13.2H, Red Blood Count 3.66L, Hemoglobin 11.8L, Hematocrit 35.7L, Mean Corpuscular Volume 98, Mean Corpuscular Hemoglobin 32.2H, Mean Corpuscular Hemoglobin Concent 33.0, Red Cell Distribution Width 12.1, Platelet Count 471H, Mean Platelet Volume 5.6L, Neutrophils (%) (Auto) 80.3H, Lymphocytes (%) (Auto) 10.1L, Monocytes (%) (Auto) 7.5, Eosinophils (%) (Auto) 0.7, Basophils (%) (Auto) 1.3, Sodium Level 139, Potassium Level 4.8, Chloride Level 106, Carbon Dioxide Level 24, Anion Gap 9, Blood Urea Nitrogen 11, Creatinine 0.9, Estimat Glomerular Filtration Rate > 60, Glucose Level 94, Calcium Level 9.3 Current Medications Medications (Trade) Dose Ordered Sig/Zully Route PRN Reason Start Time Stop Time Status Last Admin Dose Admin Acetaminophen (Tylenol) 650 mg Q6H PRN ORAL Mild Pain/Temp > 100.5 06/20/19 18:30 07/18/19 00:29 06/22/19 11:46 Clindamycin HCl/ Dextrose 50 ml @ 100 mls/hr Q8HR IV 06/20/19 22:00 06/25/19 05:59 06/23/19 05:44 Docusate Sodium (Colace) 100 mg BID ORAL 06/21/19 09:00 07/18/19 17:59 06/23/19 09:47 Gentamicin Protocol (Gentamicin pharmacy to dose) 1 ea DAILY PRN MISC Per rx protocol 06/21/19 09:00 07/17/19 19:14 Gentamicin Sulfate 220 mg/ Sodium Chloride 115.5 ml @ 231 mls/hr Q24H IVPB 06/20/19 21:00 06/25/19 20:59 06/22/19 20:37 Lactobacillus Acidophilus (Culturelle) 1 tab TWICE A DAY ORAL 06/21/19 18:00 07/21/19 17:59 06/23/19 09:47 Vancomycin HCl (Vanco rx to dose) 1 ea DAILY PRN MISC Per rx protocol 06/21/19 09:00 07/18/19 11:14 Vancomycin HCl 1 gm/Sodium Chloride 275 ml @ 183.708 mls/hr Q12H IVPB 06/20/19 23:00 06/25/19 22:59 06/23/19 09:48 Job Abbott MD Jun 23, 2019 12:37
--- NOTE | 2019-06-23 15:08 | Infectious Diseases Prog Note ---
Assessment/Plan Assessment/Plan A) 1) streptococcus group b bacteremia, sepsis, leukocytosis, ? pna, chest x- ray neg now, fevers, s/p myomectomy, possible polymicrobial infection 2) hx fibroids and bleeding 3) hx HTN 4) allergies - pcn, sulfa - severe 5) sh-neg, fh-nc, meds noted, mar noted 6) d/w RN and patient P) 1) clindamycin, gentamicin and vancomycin day # 6 abx - clinically improved 2) CT without abscess, surveillance blood cultures negative 3) monitor temperatures and labs, still with mild leukocytosis, check pelvic ultrasound 4) d/w Dr. Mcconnell 5) d/w patient 6) surgery f/u - no surgery for now Subjective Constitutional: Denies: fever HEENT: Denies: congestion Respiratory: Denies: shortness of breath Cardiovascular: Denies: chest pain Gastrointestinal/Abdominal: Denies: nausea, vomiting, diarrhea Genitourinary: Reports: other - no garcía, no cva pain Neurologic: Denies: headache Psychiatric: Denies: depression Skin: Denies: rash Hematologic: Denies: bleeding Musculoskeletal: Denies: pain Allergies: Coded Allergies: PENICILLINS (Verified Allergy, Severe, possible anaphylaxis, 06/19/19) possible anaphylaxis per H&P from Dr Diop, 06/18/19 SULFAMETHOXAZOLE (Verified Allergy, Intermediate, Hives, 06/19/19) possible anaphylaxis per H&P from Dr Diop, 06/18/19 Objective Vital Signs Last 24 Hour Vital Signs Date Time Temp Pulse Resp B/P (MAP) Pulse Ox O2 Delivery O2 Flow Rate FiO2 06/23/19 12:00 98.9 91 20 111/73 (86) 99 06/23/19 09:00 Room Air 06/23/19 08:00 98.8 95 18 122/84 (97) 99 06/23/19 04:00 98.1 87 16 106/74 (85) 98 06/23/19 00:00 97.5 86 18 115/79 (91) 99 06/22/19 21:00 Room Air 06/22/19 20:00 97.7 99 18 131/89 (103) 98 06/22/19 16:00 97.1 79 20 119/82 (94) 99 Height (Feet): 5 Weight (Pounds): 103 General Appearance: no acute distress HEENT: normocephalic, atraumatic, anicteric, mucous membranes moist Respiratory/Chest: lungs clear, normal breath sounds, no respiratory distress, no accessory muscle use Cardiovascular: normal rate, regular rhythm, no gallop/murmur, no JVD Abdomen: normal bowel sounds, soft, non tender, no organomegaly, non distended Genitourinary: other - no garcía Extremities: no cyanosis Skin: no rash Neurologic/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 No evidence of extrauterine blood or abscess. Basilar atelectasis and trace bilateral pleural effusions. Other incidental findings as described above Chest x-ray - 06/18/19 - A single view chest radiograph was obtained. Findings: There is mild basal atelectasis are demonstrated. There is generalized attenuation of the lung bases due to breast implants. Heart size is normal. Bones are unremarkable. IMPRESSION: Basilar atelectasis Microbiology Date/Time Source Procedure Growth Status 06/18/19 15:10 Blood Blood Culture - Preliminary NO GROWTH AFTER 4 DAYS Resulted 06/18/19 16:00 Sputum Gram Stain - Final Complete 06/18/19 16:00 Sputum Sputum Culture - Final NORMAL UPPER RESPIRATORY CATHRYN PRESENT Complete 06/17/19 18:15 Urine,Clean Catch Urine Culture - Final NO GROWTH AFTER 48 HOURS Complete Microbiology Date/Time Source Procedure Growth Status 06/18/19 15:10 Blood Blood Culture - Preliminary NO GROWTH AFTER 4 DAYS Resulted 06/18/19 16:00 Sputum Gram Stain - Final Complete 06/18/19 16:00 Sputum Sputum Culture - Final NORMAL UPPER RESPIRATORY CATHRYN PRESENT Complete 06/17/19 18:15 Urine,Clean Catch Urine Culture - Final NO GROWTH AFTER 48 HOURS Complete Laboratory Tests Test 06/23/19 05:20 White Blood Count 13.2 K/UL (4.8-10.8) H Red Blood Count 3.66 M/UL (4.20-5.40) L Hemoglobin 11.8 G/DL (12.0-16.0) L Hematocrit 35.7 % (37.0-47.0) L Mean Corpuscular Volume 98 FL (80-99) Mean Corpuscular Hemoglobin 32.2 PG (27.0-31.0) H Mean Corpuscular Hemoglobin Concent 33.0 G/DL (32.0-36.0) Red Cell Distribution Width 12.1 % (11.6-14.8) Platelet Count 471 K/UL (150-450) H Mean Platelet Volume 5.6 FL (6.5-10.1) L Neutrophils (%) (Auto) 80.3 % (45.0-75.0) H Lymphocytes (%) (Auto) 10.1 % (20.0-45.0) L Monocytes (%) (Auto) 7.5 % (1.0-10.0) Eosinophils (%) (Auto) 0.7 % (0.0-3.0) Basophils (%) (Auto) 1.3 % (0.0-2.0) Sodium Level 139 MMOL/L (136-145) Potassium Level 4.8 MMOL/L (3.5-5.1) Chloride Level 106 MMOL/L (98-107) Carbon Dioxide Level 24 MMOL/L (21-32) Anion Gap 9 mmol/L (5-15) Blood Urea Nitrogen 11 mg/dL (7-18) Creatinine 0.9 MG/DL (0.55-1.30) Estimat Glomerular Filtration Rate > 60 mL/min (>60) Glucose Level 94 MG/DL (74-106) Calcium Level 9.3 MG/DL (8.5-10.1) Current Medications Medications (Trade) Dose Ordered Sig/Zully Route PRN Reason Start Time Stop Time Status Last Admin Dose Admin Acetaminophen (Tylenol) 650 mg Q6H PRN ORAL Mild Pain/Temp > 100.5 06/20/19 18:30 07/18/19 00:29 06/22/19 11:46 Clindamycin HCl/ Dextrose 50 ml @ 100 mls/hr Q8HR IV 06/20/19 22:00 06/25/19 05:59 06/23/19 13:53 Docusate Sodium (Colace) 100 mg BID ORAL 06/21/19 09:00 07/18/19 17:59 06/23/19 09:47 Gentamicin Protocol (Gentamicin pharmacy to dose) 1 ea DAILY PRN MISC Per rx protocol 06/21/19 09:00 07/17/19 19:14 Gentamicin Sulfate 220 mg/ Sodium Chloride 115.5 ml @ 231 mls/hr Q24H IVPB 06/20/19 21:00 06/25/19 20:59 06/22/19 20:37 Lactobacillus Acidophilus (Culturelle) 1 tab TWICE A DAY ORAL 06/21/19 18:00 07/21/19 17:59 06/23/19 09:47 Vancomycin HCl (Vanco rx to dose) 1 ea DAILY PRN MISC Per rx protocol 06/21/19 09:00 07/18/19 11:14 Vancomycin HCl 1 gm/Sodium Chloride 275 ml @ 183.708 mls/hr Q12H IVPB 06/20/19 23:00 06/25/19 22:59 06/23/19 09:48 Wilfrido Hollis MD Jun 23, 2019 15:08
--- NOTE | 2019-06-23 15:15 | Diagnostic Imaging Report ---
Indication: Pelvic pain, status post hysteroscopic fibroid removal, history postsurgical sepsis Technique: Transabdominal and transvaginal images of the pelvis. Doppler interrogation of the bilateral ovaries Comparison: No comparison sonograms. Reference made to CT scan dated 06/17/2019 Findings: Uterus measures 9.9 cm in length by 6.6 cm AP. There is a submucosal fibroid slightly expanding the endometrium. This measures 3.6 cm long axis dimension. This is vascular. Echogenic foci within it are of uncertain significance, as no calcifications are demonstrated on recent CT. This may be related to the gas bubbles demonstrated on prior CT. There is a more questionable fibroid in the lower uterine segment seen on the transabdominal images which measures 3.8 cm long axis dimension, also equivocally evident on prior CT scan but not evident on the transabdominal images. There is a hypoechoic fibroid in the subserosal fundus, corresponding to findings demonstrated on prior CT. A small nabothian cyst is seen within the cervix. The endocervical canal is closed. Small amount of endometrial fluid is demonstrated. This also demonstrates echogenic foci Right ovary measures 2.6 cm in length. Left ovary measures 2.6 cm in length. No free cul-de-sac fluid demonstrated. Impression: Evidence of uterine fundal submucosal fibroid and more questionable lower uterine segment submucosal fibroid. No definite evidence of fibroid prolapse Echogenic foci within/about the fibroid and in the endometrium could be related to gas bubbles Uterine fundal fibroid, probably necrotic, also noted No evidence of adnexal mass Incidental finding of small cervical nabothian cyst Images reviewed in person with Dr. Pope at the time of interpretation
[2019-06-23 16:00] VITALS: BP 110/83
--- NOTE | 2019-06-23 16:51 | General Surgery Progress Note ---
General Surgery-Progress Note Subjective Procedure Performed hysteroscopy, myomectomy Symptoms: improved, tolerating diet, voiding well, BM Objective Last 24 Hour Vital Signs Date Time Temp Pulse Resp B/P (MAP) Pulse Ox O2 Delivery O2 Flow Rate FiO2 06/23/19 12:00 98.9 91 20 111/73 (86) 99 06/23/19 09:00 Room Air 06/23/19 08:00 98.8 95 18 122/84 (97) 99 06/23/19 04:00 98.1 87 16 106/74 (85) 98 06/23/19 00:00 97.5 86 18 115/79 (91) 99 06/22/19 21:00 Room Air 06/22/19 20:00 97.7 99 18 131/89 (103) 98 I&O Intake and Output 06/22/19 06/23/19 19:00 07:00 Intake Total 925.000 ml 1220.500 ml Output Total 1550 ml 1100 ml Balance -625.000 ml 120.500 ml Intake Oral 600 ml 720 ml IV Total 325.000 ml 500.500 ml Output Urine Total 1550 ml 1100 ml # Voids 8 5 # Bowel Movements 2 Dressing: dry Drains: none Cardiovascular: RSR Respiratory: clear Abdomen: soft, flat, scaphoid Extremities: no edema, no tenderness, no cyanosis Laboratory Tests Test 06/23/19 05:20 White Blood Count 13.2 K/UL (4.8-10.8) H Red Blood Count 3.66 M/UL (4.20-5.40) L Hemoglobin 11.8 G/DL (12.0-16.0) L Hematocrit 35.7 % (37.0-47.0) L Mean Corpuscular Volume 98 FL (80-99) Mean Corpuscular Hemoglobin 32.2 PG (27.0-31.0) H Mean Corpuscular Hemoglobin Concent 33.0 G/DL (32.0-36.0) Red Cell Distribution Width 12.1 % (11.6-14.8) Platelet Count 471 K/UL (150-450) H Mean Platelet Volume 5.6 FL (6.5-10.1) L Neutrophils (%) (Auto) 80.3 % (45.0-75.0) H Lymphocytes (%) (Auto) 10.1 % (20.0-45.0) L Monocytes (%) (Auto) 7.5 % (1.0-10.0) Eosinophils (%) (Auto) 0.7 % (0.0-3.0) Basophils (%) (Auto) 1.3 % (0.0-2.0) Sodium Level 139 MMOL/L (136-145) Potassium Level 4.8 MMOL/L (3.5-5.1) Chloride Level 106 MMOL/L (98-107) Carbon Dioxide Level 24 MMOL/L (21-32) Anion Gap 9 mmol/L (5-15) Blood Urea Nitrogen 11 mg/dL (7-18) Creatinine 0.9 MG/DL (0.55-1.30) Estimat Glomerular Filtration Rate > 60 mL/min (>60) Glucose Level 94 MG/DL (74-106) Calcium Level 9.3 MG/DL (8.5-10.1) Additional Comments vital signs improving daily pelvic ultrasound, no acute disease. Plan Additional Comments anticipate sunday discharge, discussed case w ID consult. Kyle Pope MD Jun 23, 2019 16:51
[2019-06-23 20:45] VITALS: BP 126/85
[2019-06-23] MEDS ORDERED: NS IVPB SCH ×4 (21:00)
[2019-06-23] MEDS ORDERED: GENTAMICIN IVPB SCH ×4 (21:00)
[2019-06-24] VITALS (7 sets, daily range): BP systolic 107–130; BP diastolic 65–83
[2019-06-24] MEDS: Clindamycin 900mg 50 ML IV SCH (05:33)
[2019-06-24 06:14] LABS: BASOPHILS % (AUTO) 1.7 % (0.0-2.0); EOSINOPHILS % (AUTO) 1.1 % (0.0-3.0); HEMATOCRIT 35.7 % (37.0-47.0); HEMOGLOBIN 11.8 G/DL (12.0-16.0); LYMPHOCYTES % (AUTO) 13.6 % (20.0-45.0); MEAN CORPUSCULAR VOLUME 97 FL (80-99); MONOCYTES % (AUTO) 6.9 % (1.0-10.0); NEUTROPHILS % (AUTO) 76.7 % (45.0-75.0); PLATELET COUNT 516 K/UL (150-450); RED BLOOD COUNT 3.67 M/UL (4.20-5.40); RED CELL DISTRIBUTION WIDTH 12.7 % (11.6-14.8); WHITE BLOOD COUNT 10.6 K/UL (4.8-10.8)
[2019-06-24 06:39] LABS: ANION GAP 7 mmol/L (5-15); BLOOD UREA NITROGEN 12 mg/dL (7-18); CALCIUM 9.2 MG/DL (8.5-10.1); CARBON DIOXIDE 26 MMOL/L (21-32); CHLORIDE 102 MMOL/L (98-107); CREATININE 0.9 MG/DL (0.55-1.30); POTASSIUM 4.5 MMOL/L (3.5-5.1); SODIUM 135 MMOL/L (136-145)
[2019-06-24] MEDS: Docusate 100mg tablet ORAL SCH ×2 (09:07→17:19)
[2019-06-24] MEDS: Lactobacillus-GG tablet ORAL SCH ×2 (09:07→17:19)
[2019-06-24] MEDS: Vancomycin 1 GM in NS 275 ML IVPB SCH (11:16)
--- NOTE | 2019-06-24 11:37 | Infectious Diseases Prog Note ---
Assessment/Plan Assessment/Plan A) 1) streptococcus group b bacteremia, sepsis, leukocytosis, ? pna, chest x- ray neg now, fevers, s/p myomectomy, possible polymicrobial infection 2) hx fibroids and bleeding 3) hx HTN 4) allergies - pcn, sulfa - severe 5) sh-neg, fh-nc, meds noted, mar noted 6) d/w RN and patient P) 1) change to oral levofloxacin and flagyl x 1 week - observe for 24 hrs 2) CT without abscess, surveillance blood cultures negative 3) monitor temperatures and labs, still with mild leukocytosis, pelvic ultrasound noted 4) d/w Dr. Mcconnell 5) d/w patient 6) surgery f/u - no surgery for now Subjective Constitutional: Denies: fever HEENT: Denies: congestion Respiratory: Denies: shortness of breath Cardiovascular: Denies: chest pain Gastrointestinal/Abdominal: Denies: nausea, vomiting, diarrhea Allergies: Coded Allergies: PENICILLINS (Verified Allergy, Severe, possible anaphylaxis, 06/19/19) possible anaphylaxis per H&P from Dr Diop, 06/18/19 SULFAMETHOXAZOLE (Verified Allergy, Intermediate, Hives, 06/19/19) possible anaphylaxis per H&P from Dr Diop, 06/18/19 Objective Vital Signs Last 24 Hour Vital Signs Date Time Temp Pulse Resp B/P (MAP) Pulse Ox O2 Delivery O2 Flow Rate FiO2 06/24/19 08:00 98.4 104 16 120/77 (91) 99 06/24/19 04:00 98.3 96 18 122/72 (89) 99 06/24/19 00:00 98.7 88 18 107/72 (84) 99 06/23/19 21:00 Room Air 06/23/19 20:45 98.7 98 18 126/85 (99) 99 06/23/19 16:00 98.5 97 18 110/83 (92) 99 06/23/19 12:00 98.9 91 20 111/73 (86) 99 Height (Feet): 5 Weight (Pounds): 103 General Appearance: no acute distress HEENT: normocephalic, atraumatic, anicteric Respiratory/Chest: lungs clear, normal breath sounds, no respiratory distress Cardiovascular: normal rate, regular rhythm, no gallop/murmur Abdomen: normal bowel sounds, soft, non tender, no organomegaly, non distended Objective CT abdomen and pelvis: IMPRESSION: Post hysteroscopic removal of the intrauterine fibroid with some residual blood and air within the endometrial canal. No evidence of extrauterine blood or abscess. Basilar atelectasis and trace bilateral pleural effusions. Other incidental findings as described above Chest x-ray - 06/18/19 - A single view chest radiograph was obtained. Findings: There is mild basal atelectasis are demonstrated. There is generalized attenuation of the lung bases due to breast implants. Heart size is normal. Bones are unremarkable. IMPRESSION: Basilar atelectasis Laboratory Tests Test 06/24/19 05:30 White Blood Count 10.6 K/UL (4.8-10.8) Red Blood Count 3.67 M/UL (4.20-5.40) L Hemoglobin 11.8 G/DL (12.0-16.0) L Hematocrit 35.7 % (37.0-47.0) L Mean Corpuscular Volume 97 FL (80-99) Mean Corpuscular Hemoglobin 32.2 PG (27.0-31.0) H Mean Corpuscular Hemoglobin Concent 33.2 G/DL (32.0-36.0) Red Cell Distribution Width 12.7 % (11.6-14.8) Platelet Count 516 K/UL (150-450) H Mean Platelet Volume 5.5 FL (6.5-10.1) L Neutrophils (%) (Auto) 76.7 % (45.0-75.0) H Lymphocytes (%) (Auto) 13.6 % (20.0-45.0) L Monocytes (%) (Auto) 6.9 % (1.0-10.0) Eosinophils (%) (Auto) 1.1 % (0.0-3.0) Basophils (%) (Auto) 1.7 % (0.0-2.0) Sodium Level 135 MMOL/L (136-145) L Potassium Level 4.5 MMOL/L (3.5-5.1) Chloride Level 102 MMOL/L (98-107) Carbon Dioxide Level 26 MMOL/L (21-32) Anion Gap 7 mmol/L (5-15) Blood Urea Nitrogen 12 mg/dL (7-18) Creatinine 0.9 MG/DL (0.55-1.30) Estimat Glomerular Filtration Rate > 60 mL/min (>60) Glucose Level 88 MG/DL (74-106) Calcium Level 9.2 MG/DL (8.5-10.1) Current Medications Medications (Trade) Dose Ordered Sig/Zully Route PRN Reason Start Time Stop Time Status Last Admin Dose Admin Acetaminophen (Tylenol) 650 mg Q6H PRN ORAL Mild Pain/Temp > 100.5 06/20/19 18:30 07/18/19 00:29 06/24/19 06:21 Docusate Sodium (Colace) 100 mg BID ORAL 06/21/19 09:00 07/18/19 17:59 06/24/19 09:07 Lactobacillus Acidophilus (Culturelle) 1 tab TWICE A DAY ORAL 06/21/19 18:00 07/21/19 17:59 06/24/19 09:07 Levofloxacin (Levaquin) 750 mg DAILY ORAL 06/25/19 09:00 07/02/19 08:59 Metronidazole (Flagyl) 500 mg EVERY 8 HOURS ORAL 06/24/19 14:00 07/01/19 13:59 Wilfrido Hollis MD Jun 24, 2019 11:37
--- NOTE | 2019-06-24 11:55 | Surgery Progress Note ---
Surgery Progress Note Subjective Symptoms: improved, pain absent, tolerating diet, voiding well, passing flatus , BM Objective Last 24 Hour Vital Signs Date Time Temp Pulse Resp B/P (MAP) Pulse Ox O2 Delivery O2 Flow Rate FiO2 06/24/19 08:00 98.4 104 16 120/77 (91) 99 06/24/19 04:00 98.3 96 18 122/72 (89) 99 06/24/19 00:00 98.7 88 18 107/72 (84) 99 06/23/19 21:00 Room Air 06/23/19 20:45 98.7 98 18 126/85 (99) 99 06/23/19 16:00 98.5 97 18 110/83 (92) 99 06/23/19 12:00 98.9 91 20 111/73 (86) 99 I&O Intake and Output 06/23/19 06/24/19 19:00 07:00 Intake Total 100 ml Output Total 1900 ml Balance -1800 ml Other 100 ml Output Urine Total 1900 ml Cardiovascular: RSR Respiratory: clear Abdomen: soft, flat, non-tender, present bowel sounds, non-distended Extremities: no edema, no tenderness, no cyanosis Laboratory Tests Test 06/24/19 05:30 White Blood Count 10.6 K/UL (4.8-10.8) Red Blood Count 3.67 M/UL (4.20-5.40) L Hemoglobin 11.8 G/DL (12.0-16.0) L Hematocrit 35.7 % (37.0-47.0) L Mean Corpuscular Volume 97 FL (80-99) Mean Corpuscular Hemoglobin 32.2 PG (27.0-31.0) H Mean Corpuscular Hemoglobin Concent 33.2 G/DL (32.0-36.0) Red Cell Distribution Width 12.7 % (11.6-14.8) Platelet Count 516 K/UL (150-450) H Mean Platelet Volume 5.5 FL (6.5-10.1) L Neutrophils (%) (Auto) 76.7 % (45.0-75.0) H Lymphocytes (%) (Auto) 13.6 % (20.0-45.0) L Monocytes (%) (Auto) 6.9 % (1.0-10.0) Eosinophils (%) (Auto) 1.1 % (0.0-3.0) Basophils (%) (Auto) 1.7 % (0.0-2.0) Sodium Level 135 MMOL/L (136-145) L Potassium Level 4.5 MMOL/L (3.5-5.1) Chloride Level 102 MMOL/L (98-107) Carbon Dioxide Level 26 MMOL/L (21-32) Anion Gap 7 mmol/L (5-15) Blood Urea Nitrogen 12 mg/dL (7-18) Creatinine 0.9 MG/DL (0.55-1.30) Estimat Glomerular Filtration Rate > 60 mL/min (>60) Glucose Level 88 MG/DL (74-106) Calcium Level 9.2 MG/DL (8.5-10.1) Plan Problems: (1) Abdominal pain Assessment & Plan: 53F abd pain, fevers, leukocytosis now resoling abd soft, no distention, now non tender no n/v nml bm labs nml now unlikely appy or gian or bowel issue given exam agree likely related to recent surgery as anticipated and improved improving with Abx cont with current care plan appreciate ID input d/c planning for possible tomorrow thank you will follow with recs (2) Sepsis Assessment & Plan: as above cont abx Earl Gaspar Jun 24, 2019 11:55
[2019-06-24] MEDS: metroNIDAZOLE 500mg tab ORAL SCH ×2 (14:13→21:34)
--- NOTE | 2019-06-24 14:54 | Pulmonology Progress Note ---
Assessment/Plan Problems: (1) Sepsis (2) Abdominal pain Assessment/Plan Continue Abx per ID, now on PO levo/flagyl --> will observe for 24 hours and D/ C home to complete 7 days Encourage OOB Supportive care Dispo planning, likely home in am Subjective Allergies: Coded Allergies: PENICILLINS (Verified Allergy, Severe, possible anaphylaxis, 06/19/19) possible anaphylaxis per H&P from Dr Diop, 06/18/19 SULFAMETHOXAZOLE (Verified Allergy, Intermediate, Hives, 06/19/19) possible anaphylaxis per H&P from Dr Diop, 06/18/19 Subjective AFVSS on RA Leukocytosis resolved, Abx switched to PO No pain, no FC, no CP, no SOB Objective Last 24 Hour Vital Signs Date Time Temp Pulse Resp B/P (MAP) Pulse Ox O2 Delivery O2 Flow Rate FiO2 06/24/19 08:00 98.4 104 16 120/77 (91) 99 06/24/19 04:00 98.3 96 18 122/72 (89) 99 06/24/19 00:00 98.7 88 18 107/72 (84) 99 06/23/19 21:00 Room Air 06/23/19 20:45 98.7 98 18 126/85 (99) 99 06/23/19 16:00 98.5 97 18 110/83 (92) 99 Intake and Output 06/23/19 06/24/19 19:00 07:00 Intake Total 100 ml Output Total 1900 ml Balance -1800 ml Other 100 ml Output Urine Total 1900 ml General Appearance: WD/WN, no acute distress HEENT: normocephalic, atraumatic, anicteric, mucous membranes moist Respiratory/Chest: chest wall non-tender, lungs clear, normal breath sounds, no respiratory distress, no accessory muscle use Cardiovascular: normal peripheral pulses, normal rate, regular rhythm Abdomen: normal bowel sounds, soft, non tender, no organomegaly, non distended , no mass Extremities: no cyanosis, no clubbing, no edema Laboratory Tests 06/24/19 05:30: White Blood Count 10.6, Red Blood Count 3.67L, Hemoglobin 11.8L, Hematocrit 35.7L, Mean Corpuscular Volume 97, Mean Corpuscular Hemoglobin 32.2H, Mean Corpuscular Hemoglobin Concent 33.2, Red Cell Distribution Width 12.7, Platelet Count 516H, Mean Platelet Volume 5.5L, Neutrophils (%) (Auto) 76.7H, Lymphocytes (%) (Auto) 13.6L, Monocytes (%) (Auto) 6.9, Eosinophils (%) (Auto) 1.1, Basophils (%) (Auto) 1.7, Sodium Level 135L, Potassium Level 4.5, Chloride Level 102, Carbon Dioxide Level 26, Anion Gap 7, Blood Urea Nitrogen 12, Creatinine 0.9, Estimat Glomerular Filtration Rate > 60, Glucose Level 88, Calcium Level 9.2 Current Medications Medications (Trade) Dose Ordered Sig/Zully Route PRN Reason Start Time Stop Time Status Last Admin Dose Admin Acetaminophen (Tylenol) 650 mg Q6H PRN ORAL Mild Pain/Temp > 100.5 06/20/19 18:30 07/18/19 00:29 06/24/19 06:21 Docusate Sodium (Colace) 100 mg BID ORAL 06/21/19 09:00 07/18/19 17:59 06/24/19 09:07 Lactobacillus Acidophilus (Culturelle) 1 tab TWICE A DAY ORAL 06/21/19 18:00 07/21/19 17:59 06/24/19 09:07 Levofloxacin (Levaquin) 750 mg DAILY ORAL 06/25/19 09:00 07/02/19 08:59 Metronidazole (Flagyl) 500 mg EVERY 8 HOURS ORAL 06/24/19 14:00 07/01/19 13:59 06/24/19 14:13 Job Abbott MD Jun 24, 2019 14:54
--- NOTE | 2019-06-24 16:16 | General Surgery Progress Note ---
General Surgery-Progress Note Subjective Procedure Performed hysteroscopy, myomectomy Symptoms: improved, tolerating diet, voiding well, BM Objective Last 24 Hour Vital Signs Date Time Temp Pulse Resp B/P (MAP) Pulse Ox O2 Delivery O2 Flow Rate FiO2 06/24/19 12:00 98.3 98 16 118/65 (82) 99 06/24/19 09:00 Room Air 06/24/19 08:00 98.4 104 16 120/77 (91) 99 06/24/19 04:00 98.3 96 18 122/72 (89) 99 06/24/19 00:00 98.7 88 18 107/72 (84) 99 06/23/19 21:00 Room Air 06/23/19 20:45 98.7 98 18 126/85 (99) 99 I&O Intake and Output 06/23/19 06/24/19 19:00 07:00 Intake Total 100 ml Output Total 1900 ml Balance -1800 ml Other 100 ml Output Urine Total 1900 ml Dressing: dry Wound: clean Drains: none Cardiovascular: RSR Respiratory: clear Abdomen: soft, flat, scaphoid Laboratory Tests Test 06/24/19 05:30 White Blood Count 10.6 K/UL (4.8-10.8) Red Blood Count 3.67 M/UL (4.20-5.40) L Hemoglobin 11.8 G/DL (12.0-16.0) L Hematocrit 35.7 % (37.0-47.0) L Mean Corpuscular Volume 97 FL (80-99) Mean Corpuscular Hemoglobin 32.2 PG (27.0-31.0) H Mean Corpuscular Hemoglobin Concent 33.2 G/DL (32.0-36.0) Red Cell Distribution Width 12.7 % (11.6-14.8) Platelet Count 516 K/UL (150-450) H Mean Platelet Volume 5.5 FL (6.5-10.1) L Neutrophils (%) (Auto) 76.7 % (45.0-75.0) H Lymphocytes (%) (Auto) 13.6 % (20.0-45.0) L Monocytes (%) (Auto) 6.9 % (1.0-10.0) Eosinophils (%) (Auto) 1.1 % (0.0-3.0) Basophils (%) (Auto) 1.7 % (0.0-2.0) Sodium Level 135 MMOL/L (136-145) L Potassium Level 4.5 MMOL/L (3.5-5.1) Chloride Level 102 MMOL/L (98-107) Carbon Dioxide Level 26 MMOL/L (21-32) Anion Gap 7 mmol/L (5-15) Blood Urea Nitrogen 12 mg/dL (7-18) Creatinine 0.9 MG/DL (0.55-1.30) Estimat Glomerular Filtration Rate > 60 mL/min (>60) Glucose Level 88 MG/DL (74-106) Calcium Level 9.2 MG/DL (8.5-10.1) Imaging WBC now normal, pulse down. Plan Additional Comments oral antibiotics per ID, anticipate am discharge Kyle Pope MD Jun 24, 2019 16:16
[2019-06-25] VITALS: BP 118/77
[2019-06-25 04:00] VITALS: BP 126/82
[2019-06-25] MEDS: metroNIDAZOLE 500mg tab ORAL SCH ×2 (05:48→13:06)
[2019-06-25 06:18] LABS: BASOPHILS % (AUTO) 1.5 % (0.0-2.0); EOSINOPHILS % (AUTO) 1.3 % (0.0-3.0); HEMATOCRIT 35.1 % (37.0-47.0); HEMOGLOBIN 11.7 G/DL (12.0-16.0); LYMPHOCYTES % (AUTO) 15.4 % (20.0-45.0); MEAN CORPUSCULAR VOLUME 97 FL (80-99); MONOCYTES % (AUTO) 7.5 % (1.0-10.0); NEUTROPHILS % (AUTO) 74.2 % (45.0-75.0); PLATELET COUNT 543 K/UL (150-450); RED BLOOD COUNT 3.61 M/UL (4.20-5.40); RED CELL DISTRIBUTION WIDTH 12.8 % (11.6-14.8); WHITE BLOOD COUNT 11.6 K/UL (4.8-10.8)
[2019-06-25 06:52] LABS: ANION GAP 7 mmol/L (5-15); BLOOD UREA NITROGEN 14 mg/dL (7-18); CALCIUM 9.3 MG/DL (8.5-10.1); CARBON DIOXIDE 26 MMOL/L (21-32); CHLORIDE 103 MMOL/L (98-107); CREATININE 0.9 MG/DL (0.55-1.30); POTASSIUM 4.7 MMOL/L (3.5-5.1); SODIUM 136 MMOL/L (136-145)
[2019-06-25 08:00] VITALS: BP 109/88
[2019-06-25] MEDS: Docusate 100mg tablet ORAL SCH (09:08)
[2019-06-25] MEDS: Lactobacillus-GG tablet ORAL SCH (09:09)
--- NOTE | 2019-06-25 11:55 | Discharge Summary ---
Discharge Summary Hospital Course Date of Admission Jun 17, 2019 at 20:00 Date of Discharge Jun 25, 2019 at 12:00 Admitting Diagnosis SEPSIS Reason for Hospitalization: Sepsis HPI Koki Ventura is a 53 year old female who was admitted on Jun 17, 2019 at 20:00 for Sepsis. She was admitted on POD1 S/P vaginal myomectomy with GBS bacteremia. She had an extensive w/u, was seen and evaluated by surgery, ID and OB-MANAGER LAN, her repeat Cx's were negative, she was transitioned to PO Abx on the day prior to D/C. Per ID she will be discharged on 6 additional days of PO Levaquin and Flagyl. Her Rx was sent to the pharmacy electronically via [email or web address] MEDS: Levaquin 750 mg PO qdaily and Flagyl 500 mg PO TID x 7 dats F/U: Dr. Pope and PMD within one week Return precautions: given Consultations ID - Wilfrido Herzog MD MANAGER LAN - Kyle Pope MD Surgery - Earl Gaspar MD Procedures None Hospital Course As above Discharge Condition Upon Discharge: stable Discharge Disposition Patient was discharged to HOME Discharge Diagnoses: (1) Sepsis Job Abbott MD Jun 25, 2019 11:55
--- NOTE | 2019-06-25 13:11 | Infectious Diseases Prog Note ---
Assessment/Plan Assessment/Plan A) 1) streptococcus group b bacteremia, sepsis, leukocytosis, ? pna, chest x- ray neg now, fevers, s/p myomectomy, possible polymicrobial infection 2) hx fibroids and bleeding 3) hx HTN 4) allergies - pcn, sulfa - severe 5) sh-neg, fh-nc, meds noted, mar noted 6) d/w RN and patient P) 1) oral levofloxacin and flagyl x 6 days (total of approximately 2 weeks iv plus po abx) 2) CT without abscess, surveillance blood cultures negative 3) monitor temperatures and labs, mild leukocytosis only, pelvic ultrasound noted 4) d/w Dr. Mcconnell and Dr. Abbott about antibiotics upon discharge 5) d/w patient 6) clinically stable for discharge, patient to f/u with Dr. Mcconnell and get f /u labs 7) d/w patient of potential side effects such as c.diff. and tendon rupture, told patient to stop levofloxacin if any tendon pain and to call me and Dr. Mcconnell of any fevers, diarrhea or abdominal pain. 8) d/w patient to take probiotics and can get from pharmacy Subjective Constitutional: Denies: fever HEENT: Denies: congestion Respiratory: Denies: shortness of breath Gastrointestinal/Abdominal: Denies: nausea, vomiting, diarrhea Genitourinary: Reports: other Neurologic: Denies: headache Skin: Denies: rash Hematologic: Denies: bleeding Musculoskeletal: Denies: pain Allergies: Coded Allergies: PENICILLINS (Verified Allergy, Severe, possible anaphylaxis, 06/19/19) possible anaphylaxis per H&P from Dr Diop, 06/18/19 SULFAMETHOXAZOLE (Verified Allergy, Intermediate, Hives, 06/19/19) possible anaphylaxis per H&P from Dr Diop, 06/18/19 Objective Vital Signs Last 24 Hour Vital Signs Date Time Temp Pulse Resp B/P (MAP) Pulse Ox O2 Delivery O2 Flow Rate FiO2 06/25/19 08:00 98.6 104 18 109/88 (95) 96 06/25/19 07:30 Room Air 06/25/19 04:00 98.1 93 20 126/82 (97) 99 06/25/19 00:00 98.8 86 19 118/77 (91) 98 06/24/19 21:00 Room Air 06/24/19 20:00 98.3 93 18 130/83 (99) 99 06/24/19 16:00 98.0 78 15 119/82 (94) 100 Height (Feet): 5 Weight (Pounds): 103 General Appearance: no acute distress HEENT: normocephalic, atraumatic, anicteric, mucous membranes moist Respiratory/Chest: lungs clear, normal breath sounds, no respiratory distress, no accessory muscle use Cardiovascular: normal rate, regular rhythm, no gallop/murmur, no JVD Abdomen: normal bowel sounds, soft, non tender, no organomegaly, non distended Genitourinary: other - no garcía Extremities: no cyanosis Skin: no rash 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 No evidence of extrauterine blood or abscess. Basilar atelectasis and trace bilateral pleural effusions. Other incidental findings as described above Chest x-ray - 06/18/19 - A single view chest radiograph was obtained. Findings: There is mild basal atelectasis are demonstrated. There is generalized attenuation of the lung bases due to breast implants. Heart size is normal. Bones are unremarkable. IMPRESSION: Basilar atelectasis Microbiology Date/Time Source Procedure Growth Status 06/18/19 15:10 Blood Blood Culture - Final NO GROWTH AFTER 5 DAYS Complete 06/18/19 16:00 Sputum Gram Stain - Final Complete 06/18/19 16:00 Sputum Sputum Culture - Final NORMAL UPPER RESPIRATORY CATHRYN PRESENT Complete 06/17/19 18:15 Urine,Clean Catch Urine Culture - Final NO GROWTH AFTER 48 HOURS Complete Laboratory Tests Test 06/25/19 05:00 White Blood Count 11.6 K/UL (4.8-10.8) H Red Blood Count 3.61 M/UL (4.20-5.40) L Hemoglobin 11.7 G/DL (12.0-16.0) L Hematocrit 35.1 % (37.0-47.0) L Mean Corpuscular Volume 97 FL (80-99) Mean Corpuscular Hemoglobin 32.5 PG (27.0-31.0) H Mean Corpuscular Hemoglobin Concent 33.4 G/DL (32.0-36.0) Red Cell Distribution Width 12.8 % (11.6-14.8) Platelet Count 543 K/UL (150-450) H Mean Platelet Volume 5.7 FL (6.5-10.1) L Neutrophils (%) (Auto) 74.2 % (45.0-75.0) Lymphocytes (%) (Auto) 15.4 % (20.0-45.0) L Monocytes (%) (Auto) 7.5 % (1.0-10.0) Eosinophils (%) (Auto) 1.3 % (0.0-3.0) Basophils (%) (Auto) 1.5 % (0.0-2.0) Sodium Level 136 MMOL/L (136-145) Potassium Level 4.7 MMOL/L (3.5-5.1) Chloride Level 103 MMOL/L (98-107) Carbon Dioxide Level 26 MMOL/L (21-32) Anion Gap 7 mmol/L (5-15) Blood Urea Nitrogen 14 mg/dL (7-18) Creatinine 0.9 MG/DL (0.55-1.30) Estimat Glomerular Filtration Rate > 60 mL/min (>60) Glucose Level 87 MG/DL (74-106) Calcium Level 9.3 MG/DL (8.5-10.1) Current Medications Medications (Trade) Dose Ordered Sig/Zully Route PRN Reason Start Time Stop Time Status Last Admin Dose Admin Acetaminophen (Tylenol) 650 mg Q6H PRN ORAL Mild Pain/Temp > 100.5 06/20/19 18:30 07/18/19 00:29 06/25/19 00:16 Docusate Sodium (Colace) 100 mg BID ORAL 06/21/19 09:00 07/18/19 17:59 06/25/19 09:08 Lactobacillus Acidophilus (Culturelle) 1 tab TWICE A DAY ORAL 06/21/19 18:00 07/21/19 17:59 06/25/19 09:09 Levofloxacin (Levaquin) 750 mg DAILY ORAL 06/25/19 09:00 07/02/19 08:59 06/25/19 09:09 Metronidazole (Flagyl) 500 mg EVERY 8 HOURS ORAL 06/24/19 14:00 07/01/19 13:59 06/25/19 05:48 Wilfrido Hollis MD Jun 25, 2019 13:11
--- NOTE | 2019-06-25 13:26 | Surgery Progress Note ---
Surgery Progress Note Subjective Symptoms: improved, pain absent, tolerating diet, voiding well, passing flatus , BM Objective Last 24 Hour Vital Signs Date Time Temp Pulse Resp B/P (MAP) Pulse Ox O2 Delivery O2 Flow Rate FiO2 06/25/19 08:00 98.6 104 18 109/88 (95) 96 06/25/19 07:30 Room Air 06/25/19 04:00 98.1 93 20 126/82 (97) 99 06/25/19 00:00 98.8 86 19 118/77 (91) 98 06/24/19 21:00 Room Air 06/24/19 20:00 98.3 93 18 130/83 (99) 99 06/24/19 16:00 98.0 78 15 119/82 (94) 100 I&O Intake and Output 06/24/19 06/25/19 19:00 07:00 Intake Total 1000 ml Output Total 2180 ml Balance -1180 ml Intake Oral 1000 ml Output Urine Total 2180 ml # Bowel Movements 1 1 Cardiovascular: RSR Respiratory: clear Abdomen: soft, flat, non-tender, present bowel sounds Extremities: no edema, no tenderness, no cyanosis Laboratory Tests Test 06/25/19 05:00 White Blood Count 11.6 K/UL (4.8-10.8) H Red Blood Count 3.61 M/UL (4.20-5.40) L Hemoglobin 11.7 G/DL (12.0-16.0) L Hematocrit 35.1 % (37.0-47.0) L Mean Corpuscular Volume 97 FL (80-99) Mean Corpuscular Hemoglobin 32.5 PG (27.0-31.0) H Mean Corpuscular Hemoglobin Concent 33.4 G/DL (32.0-36.0) Red Cell Distribution Width 12.8 % (11.6-14.8) Platelet Count 543 K/UL (150-450) H Mean Platelet Volume 5.7 FL (6.5-10.1) L Neutrophils (%) (Auto) 74.2 % (45.0-75.0) Lymphocytes (%) (Auto) 15.4 % (20.0-45.0) L Monocytes (%) (Auto) 7.5 % (1.0-10.0) Eosinophils (%) (Auto) 1.3 % (0.0-3.0) Basophils (%) (Auto) 1.5 % (0.0-2.0) Sodium Level 136 MMOL/L (136-145) Potassium Level 4.7 MMOL/L (3.5-5.1) Chloride Level 103 MMOL/L (98-107) Carbon Dioxide Level 26 MMOL/L (21-32) Anion Gap 7 mmol/L (5-15) Blood Urea Nitrogen 14 mg/dL (7-18) Creatinine 0.9 MG/DL (0.55-1.30) Estimat Glomerular Filtration Rate > 60 mL/min (>60) Glucose Level 87 MG/DL (74-106) Calcium Level 9.3 MG/DL (8.5-10.1) Plan Problems: (1) Abdominal pain Assessment & Plan: 53F abd pain, fevers, leukocytosis now resoling abd soft, no distention, now non tender no n/v nml bm labs nml now unlikely appy or gian or bowel issue given exam agree likely related to recent surgery as anticipated and improved improving with Abx cont with current care plan appreciate ID input d/c home today f/u outpatient thank you will follow with recs (2) Sepsis Assessment & Plan: as above cont abx Earl Gaspar Jun 25, 2019 13:26
== END 2019-06-25 13:18 | disposition home or self-care (01) | DRG 862 ==
LOC: EMR 19:10 → 2W 20:00 → EDBEDREQSVC 20:15 → EDBEDREQ 21:58 → 3E 06-20 18:15
DX: T81.44XA Sepsis following a procedure, initial encounter (principal); J18.9 Pneumonia, unspecified organism; A40.1 Sepsis due to streptococcus, group B; N39.0 Urinary tract infection, site not specified; J98.11 Atelectasis; Z88.0 Allergy status to penicillin; Z88.2 Allergy status to sulfonamides; I10 Essential (primary) hypertension; R10.9 Unspecified abdominal pain
CPT/HCPCS: 36415; 71045; 71046; 71260; 74177; 76830; 76856; 80048; 80053; 80170; 80202; 81003; 83540; 83550; 83605; 84484; 85007; 85025; 85610; 85730; 87040; 87070; 87086; 87181; 87205; 93005; 96361; 96365; 96367; 99291; S0077